=== PATIENT | male | born 1950 | race Caucasian/White ===

== ENCOUNTER → 2017-01-15 | Outpatient (CLI) | payer OTHER ==
[~2017-01-15] MED LIST: ACT15 PO; ALL300 PO; ASPCH81 PO; ATEN50TA8 PO; ERGO1CAP35 PO; GLC500 PO; HYD50 PO; LISI-725 PO; MCR5 PO; OMEG10007 PO; SIMV20TA2 PO; rapaflo PO
[2017-01-15 14:04] LABS: BLOOD UREA NITROGEN 13 mg/dl (7-18); BUN/CREATININE RATIO 15.8 (10-20); CREATININE 0.84 mg/dl (0.60-1.40)
== END | disposition home or self-care (01) ==
LOC: C.LABBC 09:40
PROVIDERS: ATTEND Urology
DX: R39.12 Poor urinary stream (principal)

== ENCOUNTER → 2017-04-19 | Outpatient (CLI) | payer OTHER, MEDICARE ==
[2017-04-19 17:16] LABS: BLOOD UREA NITROGEN 12 mg/dl (7-18); CREATININE 0.88 mg/dl (0.60-1.40)
== END | disposition home or self-care (01) ==
LOC: C.LABBC 12:21
PROVIDERS: ATTEND Urology
DX: E11.9 Type 2 diabetes mellitus without complications (principal); R97.20 Elevated prostate specific antigen [PSA]

== ENCOUNTER → 2017-05-02 | Outpatient (CLI) | payer OTHER, MEDICARE ==
[~2017-05-02] MED LIST changes: +GADAVIST IV PRN
--- NOTE | 2017-05-02 12:54 | DIAGNOSTIC IMAGING REPORT ---
PROSTATE MRI COMBO CLINICAL HISTORY: 67 years-old Male presenting with elevated PSA. PSA 5.26 ng/mL on 01/15/2017 and 0.916 on 04/19/2017. TECHNIQUE: Multisequence, multiplanar MR imaging of the prostate was performed before and after the administration of intravenous contrast. Additional postprocessing was performed on a separate [employer] workstation by the radiologist for 3-D volumetric segmentation of the prostate and contouring of region(s) of interest (SUSAN) for targeting. IV contrast: 12 mL of Gadavist. Notably, the first attempt at intravenous contrast injection resulted in extravasation in the right antecubital fossa. Successful subsequent injection in the left upper extremity. COMPARISON: CT from 01/15/2017 performed at an outside hospital. FINDINGS: Image quality is degraded by patient body habitus. Prostate: The prostate measures 4.9 x 3.9 x 5.1 cm (GrabhouseD prostate boundary segmentation volume 43 mL). Moderate changes of benign prostatic hyperplasia. Precontrast T1 weighted imaging demonstrates no evidence of intrinsic T1 hyperintensity to suggest hemorrhage. Symmetric T2 hypointensity at the paramedian prostate base in the peripheral zone characteristic of stroma related to the insertion of the ejaculatory ducts. No suspicious lesion is apparent in the transition or peripheral zones. Seminal vesicles normal. Bladder: Bladder wall thickening likely indicating chronic outlet obstruction. Bowel: Visualized portion of the rectum normal. Peritoneum: No free fluid in the pelvis. Lymph nodes: No lymphadenopathy in the visualized portion of the pelvis. Vasculature: Iliac vessels patent. Abdominal wall: Normal. Osseous structures: Normal bone marrow signal intensity. IMPRESSION: 1. No suspicious lesion is apparent in the transition or peripheral zones. 2. Benign prostatic hyperplasia. Electronically signed by: Chris Hamilton M.D. 05/02/2017 12:53 PM Dictated Date/Time: 05/02/2017 12:45 PM
== END | disposition home or self-care (01) ==
LOC: C.MRIBC 09:13
PROVIDERS: ATTEND Urology
DX: R97.20 Elevated prostate specific antigen [PSA] (principal); N40.0 Benign prostatic hyperplasia without lower urinary tract symptoms

== ENCOUNTER 2024-07-20 18:23 | Inpatient (IN) ==
[2024-07-20 19:28] LABS: Basophils # (auto) 0.06 K/uL (0.00-0.20); Basophils % (auto) 0.6 %; Eosinophils # (auto) 0.03 K/uL (0.00-0.50); Eosinophils % (auto) 0.3 %; Hemoglobin 15.5 g/dl (14.0-18.0); Immature Granulocytes # (auto) 0.04 K/uL (0.01-0.20); Immature Granulocytes % (auto) 0.4 %; Lymphocytes # (auto) 0.85 K/uL (1.20-3.40); Mean Corpuscular Hemoglobin 29.5 pg (25.0-34.0); Mean Corpuscular Volume 89.4 fL (80.0-100.0); Mean Platelet Volume 10.9 fL (9.4-12.4); Monocytes # (auto) 1.11 K/uL (0.11-0.59); Monocytes % (auto) 11.8 %; Neutrophils # (auto) 7.34 K/uL (1.40-6.50); Neutrophils % (auto) 77.9 %; Platelet Count 219 K/uL (130-400); RDW Coefficient of Variation 13.5 % (11.5-14.5); RDW Standard Deviation 44.1 fL (36.4-46.3); Red Blood Count 5.26 M/uL (4.70-6.10); White Blood Count 9.43 K/ul (4.8-10.8)
[2024-07-20] MEDS: ALBUT/IPRATROP 3MG/0.5MG NEB 3 ML VIAL NEB STA (19:34)
[2024-07-20 19:45] LABS: BUN Creatinine Ratio 18.2 (10-20); Bilirubin,Total 0.6 mg/dl (0.2-1.0); Calcium 9.4 mg/dl (8.6-10.3); Creatinine Clr Calc Pharmacy 92.6 ml/min; Globulin 3.9 gm/dl (2.5-4.0); Potassium 4.4 mmol/L (3.5-5.1); Total Protein 7.9 gm/dl (6.0-8.3)
[2024-07-20 19:51] LABS: Troponin I High Sensitivity 43.8 pg/ml (0-20)
[2024-07-20 19:52] LABS: HCO3 VBG 30 mmol/L; Oxygen Saturation VBG 70.4 %; PCO2 VBG 48 mmHg (38-50); PO2 VBG 42 mmHg
[2024-07-20 20:07] LABS: Partial Thromboplastin Ratio 1.1; Partial Thromboplastin Time 29 Seconds (21-31)
[2024-07-20 20:15] LABS: Adenovirus PCR Not Detected (NotDetected); Bordetella parapertussis PCR Not Detected (NotDetected); Bordetella pertussis PCR Not Detected (NotDetected); Chlamydia pneumoniae PCR Not Detected (NotDetected); Coronavirus 229E PCR Not Detected (NotDetected); Coronavirus CoV-2 (COVID19)PCR DETECTED (NotDetected); Coronavirus HKU1 PCR Not Detected (NotDetected); Coronavirus NL63 PCR Not Detected (NotDetected); Coronavirus OC43PCR Not Detected (NotDetected); Human Metapneumovirus PCR Not Detected (NotDetected); Influenza A PCR Not Detected (NotDetected); Influenza B PCR Not Detected (NotDetected); Mycoplasma pneumoniae PCR Not Detected (NotDetected); Parainfluenza Virus 1 PCR Not Detected (NotDetected); Parainfluenza Virus 2 PCR Not Detected (NotDetected); Parainfluenza Virus 3 PCR Not Detected (NotDetected); Parainfluenza Virus 4 PCR Not Detected (NotDetected); Respiratory Syncytial VirusPCR Not Detected (NotDetected); Rhinovirus/Enterovirus PCR Not Detected (NotDetected)
[2024-07-20] MEDS: FUROSEMIDE 40 MG/4 ML VIAL IV ONE (21:02)
[2024-07-20] MEDS: dexAMETHasone**PF** 10 MG/ML VIAL IV ONE (21:03)
--- NOTE | 2024-07-20 21:06 | XRay Report ---
EXAM: XR chest 1V not portable CLINICAL HISTORY: Chest pain, nonspecific TECHNIQUE: An X-ray image of the chest is obtained in AP projection. COMPARISON: No prior studies are available for comparison. FINDINGS: Pulmonary Parenchyma: Prominent bilateral bronchovascular lung markings. Haziness in the left lower zone and costophrenic angle. No evidence of consolidation, collapse, or focal opacities. No pulmonary nodules are identified. Heart and Mediastinum: Heart size appears enlarged. No mediastinal widening or masses. No hilar or mediastinal lymphadenopathy. Bony Thorax: Bony thorax appears intact without fractures or deformities. Soft Tissues: Soft tissues overlying the chest wall are unremarkable. IMPRESSION: 1. Cardiomegaly with prominent bronchovascular lung markings; likely vascular congestion. 2. Haziness in the left lower zone and costophrenic angle is likely due to enlarged cardiac shadow versus atelectatic changes/minimal pleural effusion. 3. Clinical correlation is suggested. Electronically signed by Andres Kang 07-20-2024 9:06 PM
[2024-07-20 21:35] LABS: Magnesium 1.4 mg/dl (1.7-2.4)
[2024-07-20 21:51] LABS: Thyroid Stimulating Hormone 0.982 uIu/ml (0.300-4.500)
[2024-07-20] MEDS ORDERED: oxyCODONE HCL IR 5 MG TAB (IMMEDIATE RELEASE) PO PRN (22:01)
[2024-07-20] MEDS ORDERED: ACETAMINOPHEN 325 MG TAB PO PRN ×2 (22:01→23:25)
[2024-07-20] MEDS ORDERED: PROMETHAZINE 6.25 MG/50.25 ML BAG IV PRN (22:01)
[2024-07-20] MEDS ORDERED: CARBOHYDRATES FOR HYPOGLYCEMIA PO PRN ×2 (22:15→23:25)
[2024-07-20] MEDS ORDERED: GLUCAGON FOR INJ 1 MG VIAL SQ PRN ×2 (22:15→23:25)
[2024-07-20] MEDS ORDERED: GLUCOSE 10 TAB/TUBE PO PRN ×2 (22:15→23:25)
[2024-07-20] MEDS ORDERED: DEXTROSE 50% 50 ML SYRINGE IV PRN ×2 (22:15→23:25)
[2024-07-20] MEDS ORDERED: GLUCOSE 40% GEL 15 GM TUBE PO PRN ×2 (22:15→23:25)
--- NOTE | 2024-07-20 22:18 | Emergency Department Note ---
History of Present Illness General Chief Complaint: Respiratory Problems Stated Complaint: REF BY [facility]-COUGH, FEVER, SHORTNESS OF BREATH Time Seen by Provider: 07/20/24 19:24 History of Present Illness Provider Complaint: shortness of breath and cough Onset (ago): day(s) (3) Consistency/Duration: + progressively worsening Relieved By: + nothing Exacerbated By: + coughing Context: + other (Exposure to someone who recently went to the [facility]); no recent illness or no recent travel Associated symptoms: + fever and + chest congestion; no chest pain, no orthopnea, no palpitations or no hemoptysis Home Medications Medication Instructions Recorded Confirmed Type allopurinol 300 mg tablet 300 mg PO QAM 08/12/23 09/04/23 History aspirin 81 mg tablet,delayed 81 mg PO DAILY 08/12/23 09/04/23 History release atenolol 50 mg tablet 50 mg PO QAM 08/12/23 09/04/23 History cholecalciferol (vitamin D3) 50 50 mcg PO DAILY 08/12/23 09/04/23 History mcg (2,000 unit) tablet (Vitamin D3) finasteride 5 mg tablet 5 mg PO 08/12/23 09/04/23 History garlic 1,000 mg capsule 1,000 mg PO DAILY 08/12/23 09/04/23 History glipizide 5 mg tablet 5 mg PO BID 08/12/23 09/04/23 History hydrochlorothiazide 50 mg tablet 50 mg PO QAM 08/12/23 09/04/23 History lisinopril 40 mg tablet 40 mg PO [facility] 08/12/23 09/04/23 History metformin 1,000 mg tablet 1,000 mg PO BID 08/12/23 09/04/23 History multivitamin 1 tab PO [facility] 08/12/23 09/04/23 History omega 0-[id number]-[id number]-fish oil 1,000 mg 1 cap PO BID 08/12/23 09/04/23 History (120 mg-180 mg) capsule (Fish Oil) pioglitazone 30 mg tablet 30 mg PO M 08/12/23 09/04/23 History simvastatin 40 mg tablet 40 mg PO PM 08/12/23 09/04/23 History tamsulosin 0.4 mg capsule 0.4 mg PO 08/12/23 09/04/23 History Allergies Allergy/AdvReac Type Severity Reaction Status Date / Time phenylbutazone Allergy Intermediate Fever Verified 07/20/24 22:17 amlodipine Allergy Mild Gastrointestinal Verified 09/04/23 08:00 Upset Past Med/Surg History Problem List (Updated 07/20/24 @ 22:18 by See Wyman MD) COVID-19 (Acute) Fluid overload (Acute) Hypoxia (Acute) 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) Medical History Arthritis BPH (benign prostatic hyperplasia) Gallstones present, no issues Diabetes mellitus, type 2 Hypertension Hyperlipidemia Sleep apnea cpap Surgical History History of right cataract extraction History of colonoscopy History of tooth extraction Hx of knee surgery in 60's can't recall which knee cap repaired History of lithotripsy Family History Grandfather (Paternal) Colon cancer Sister Diabetes Brother Diabetes Social History Smoking Status: Former smoker Second Hand Exposure: No; Do You Dip or Chew Tobacco: No; Hx Alcohol Use: No Hx Substance Use: No Preferred Language: Portuguese Communication Ability: Effective Senior Clinical Research Associate Required: No Beliefs That Will Affect Care: None Current Living Situation: Spouse Feels Safe at Home: Yes Assistive Devices: CPAP and Glasses Physical Exam 2 Vital Signs: Vital Signs - 24 hr 07/20/24 18:28 07/20/24 19:17 07/20/24 19:20 Temperature 37.1 C Temperature Source Oral Pulse Rate 84 Respiratory Rate 14 Blood Pressure 189/95 H 190/98 H Blood Pressure Nithya n 126 149 Pulse Oximetry 92 88 L Oxygen Delivery Me thod Room Air Nasal Cannula Oxygen Flow Rate 0 Sepsis New/Unexpla ined Change in Men brandon Status No Sepsis Action Take n by Nursing No Action Required Oxygen Flow Rate - Titration 2 Pulse Oximetry Pos t Tiitration 90 07/20/24 19:27 07/20/24 19:30 07/20/24 19:41 Temperature Temperature Source Pulse Rate 73 75 Respiratory Rate 16 Blood Pressure 184/89 H Blood Pressure Nithya n 121 Pulse Oximetry 96 Oxygen Delivery Me thod Nasal Cannula Oxygen Flow Rate 2 Sepsis New/Unexpla ined Change in Men brandon Status Sepsis Action Take n by Nursing Oxygen Flow Rate - Titration Pulse Oximetry Pos t Tiitration 07/20/24 19:57 07/20/24 20:00 07/20/24 20:00 Temperature Temperature Source Pulse Rate 79 79 Respiratory Rate 23 Blood Pressure 173/98 H Blood Pressure Nithya n 111 Pulse Oximetry 95 96 Oxygen Delivery Me thod Nasal Cannula Nasal Cannula Oxygen Flow Rate 2 2 Sepsis New/Unexpla ined Change in Men brandon Status Sepsis Action Take n by Nursing Oxygen Flow Rate - Titration Pulse Oximetry Pos t Tiitration 07/20/24 20:00 07/20/24 20:18 07/20/24 20:30 Temperature Temperature Source Pulse Rate 77 Respiratory Rate 22 Blood Pressure 173/98 H 173/87 H Blood Pressure Nithya n 111 134 Pulse Oximetry 96 Oxygen Delivery Me thod Nasal Cannula Oxygen Flow Rate 2 Sepsis New/Unexpla ined Change in Men brandon Status Sepsis Action Take n by Nursing Oxygen Flow Rate - Titration Pulse Oximetry Pos t Tiitration 07/20/24 20:33 07/20/24 20:51 07/20/24 21:12 Temperature Temperature Source Pulse Rate 79 78 80 Respiratory Rate 24 18 17 Blood Pressure Blood Pressure Nithya n Pulse Oximetry 96 94 94 Oxygen Delivery Me thod Nasal Cannula Nasal Cannula Nasal Cannula Oxygen Flow Rate 2 2 2 Sepsis New/Unexpla ined Change in Men brandon Status Sepsis Action Take n by Nursing Oxygen Flow Rate - Titration Pulse Oximetry Pos t Tiitration Physical Exam: Physical Exam GENERAL: oriented to person, place, and time. appears well-developed and well- nourished. HENT: Exam performed. - Head: Normocephalic and atraumatic. EYES: Conjunctivae and EOM are normal. Right eye exhibits no discharge. Left eye exhibits no discharge. No scleral icterus. NECK: Normal range of motion. Neck supple. No JVD present. CV: Normal rate, regular rhythm, normal heart sounds and intact distal pulses. There is no peripheral edema. Palpable radial pulses bue. PULM/CHEST: Inspiratory rales at the bases. ABD: The abdomen is soft. There is no tenderness. NEURO: Motor and sensation grossly intact. SKIN: Skin is warm and dry. He is not diaphoretic. PSYCH: normal mood and affect. Behavior is normal. Judgment and thought content normal. Course Course 1923: The patient was evaluated in room B12. A complete history and physical exam was performed Cardiac monitoring: An order was placed for continuous cardiac monitoring. The monitor shows a rate of 80 with sinus rhythm interpreted by me Patient was found to be hypoxic on room air. Supplemental oxygen was applied which improved the patient's oxygen saturation. 2039: Vital signs stable on supplemental oxygen via nasal cannula. Chest x-ray shows cardiomegaly with cephalization. Labs show an elevated proBNP and troponin. Patient is COVID-positive. Patient be treated with Lasix 40 mg IV push as well as Decadron 6 mg IV push. Patient will be admitted to the [facility] team. Administered Medications Discontinued Medications Albuterol (Albut/Ipratrop 3mg/0.5mg Neb 3 Ml Vial) 3 ml NEB NOW STA; Protocol Stop: 07/20/24 19:30 Last Admin: 07/20/24 19:34 Dose: 3 ml Documented By: [facility] Dexamethasone Sodium Phosphate (DexamethasonePf 10 Mg/Ml Vial) 6 mg IV NOW ONE Stop: 07/20/24 20:39 Last Admin: 07/20/24 21:03 Dose: 6 mg Documented By: [facility] Furosemide (Furosemide 40 Mg/4 Ml Vial) 40 mg IV ONE ONE Stop: 07/20/24 20:39 Last Admin: 07/20/24 21:02 Dose: 40 mg Documented By: [facility] Medical Decision Making Laboratory Data Attestation: I reviewed the patient's lab results. 07/20/24 19:10 07/20/24 19:10 Lab Results 07/20/24 07/20/24 07/20/24 Range/Units 19:10 19:40 21:00 WBC 9.43 (4.8-10.8) K/ul RBC 5.26 (4.70-6.10) M/uL Hgb 15.5 (14.0-18.0) g/dl Hct 47.0 (42.0-52.0) % MCV 89.4 (80.0-100.0) fL MCH 29.5 (25.0-34.0) pg MCHC 33.0 (32.0-36.0) g/dL RDW Std Deviation 44.1 (36.4-46.3) fL RDW Coeff of Alexandr 13.5 (11.5-14.5) % Plt Count 219 (130-400) K/uL MPV 10.9 (9.4-12.4) fL Immature Gran % (Auto) 0.4 % Neut % (Auto) 77.9 % Lymph % (Auto) 9.0 % [place] % (Auto) 11.8 % Eos % (Auto) 0.3 % Baso % (Auto) 0.6 % Neut # (Auto) 7.34 H (1.40-6.50) K/uL Lymph # (Auto) 0.85 L (1.20-3.40) K/uL [place] # (Auto) 1.11 H (0.11-0.59) K/uL Eos # (Auto) 0.03 (0.00-0.50) K/uL Baso # (Auto) 0.06 (0.00-0.20) K/uL Immature Gran # (Auto) 0.04 (0.01-0.20) K/uL PT 11.0 (9.0-12.0) Seconds INR 1.0 (0.9-1.1) APTT 29 (21-31) Seconds PTT Ratio 1.1 VBG pH 7.40 (7.36-7.41) VBG pCO2 48 (38-50) mmHg VBG pO2 42 mmHg VBG HCO3 30 mmol/L VBG O2 Saturation 70.4 % VBG Base Excess 4.0 mEq/L Sodium 139 (136-145) mmol/L Potassium 4.4 (3.5-5.1) mmol/L Chloride 100 (98-107) mmol/L Carbon Dioxide 29 (21-32) mmol/L Anion Gap 10 (3-11) BUN 16 (6-23) mg/dl Creatinine 0.88 (0.6-1.4) mg/dl Est Cr Clr Drug Dosing 92.6 ml/min eGFR 89.12 BUN/Creatinine Ratio 18.2 (10-20) Glucose 157 H (70-99(Fasting)) mg/dl Calcium 9.4 (8.6-10.3) mg/dl Magnesium 1.4 L (1.7-2.4) mg/dl Total Bilirubin 0.6 (0.2-1.0) mg/dl AST 28 (13-39) U/L ALT 17 (7-52) U/L Alkaline Phosphatase 54 (34-104) U/L Troponin I High Sens 43.8 H 43.3 H (0-20) pg/ml B-Natriuretic Peptide 389 H (0-100) pg/ml Total Protein 7.9 (6.0-8.3) gm/dl Albumin 4.0 (3.4-5.0) gm/dl Globulin 3.9 (2.5-4.0) gm/dl Albumin/Globulin Ratio 1.0 (0.9-2) TSH 0.982 (0.300-4.500) uIu/ml Adenovirus (PCR) Not Detected (NotDetected) B. pertussis DNA (PCR) Not Detected (NotDetected) B.parapertussis DNA PCR Not Detected (NotDetected) C. pneumoniae DNA (PCR) Not Detected (NotDetected) Coronavirus OC43 (PCR) Not Detected (NotDetected) Coronavirus HKU1 (PCR) Not Detected (NotDetected) Coronavirus 229E (PCR) Not Detected (NotDetected) SARS-CoV-2 (PCR) DETECTED A (NotDetected) Coronavirus NL63 (PCR) Not Detected (NotDetected) Human Metapneumovir PCR Not Detected (NotDetected) Influenza Type A (PCR) Not Detected (NotDetected) Influenza Type B (PCR) Not Detected (NotDetected) M. pneumoniae (PCR) Not Detected (NotDetected) Parainfluenza 1 (PCR) Not Detected (NotDetected) Parainfluenza 2 (PCR) Not Detected (NotDetected) Parainfluenza 3 (PCR) Not Detected (NotDetected) Parainfluenza 4 (PCR) Not Detected (NotDetected) RSV (PCR) Not Detected (NotDetected) Entero/Rhino (PCR) Not Detected (NotDetected) Imaging Data Attestation: I personally reviewed and interpreted this imaging study as follows: My Impression: Chest x-ray: Cardiomegaly with cephalization Radiologist's Impression: Chest X-Ray 07/20/24 19:00 EXAM: XR chest 1V not portable CLINICAL HISTORY: Chest pain, nonspecific TECHNIQUE: An X-ray image of the chest is obtained in AP projection. COMPARISON: No prior studies are available for comparison. FINDINGS: Pulmonary Parenchyma: Prominent bilateral bronchovascular lung markings. Haziness in the left lower zone and costophrenic angle. No evidence of consolidation, collapse, or focal opacities. No pulmonary nodules are identified. Heart and Mediastinum: Heart size appears enlarged. No mediastinal widening or masses. No hilar or mediastinal lymphadenopathy. Bony Thorax: Bony thorax appears intact without fractures or deformities. Soft Tissues: Soft tissues overlying the chest wall are unremarkable. IMPRESSION: 1. Cardiomegaly with prominent bronchovascular lung markings; likely vascular congestion. 2. Haziness in the left lower zone and costophrenic angle is likely due to enlarged cardiac shadow versus atelectatic changes/minimal pleural effusion. 3. Clinical correlation is suggested. Electronically signed by Andres Kang 07-20-2024 9:06 PM ECG Data Attestation: I personally reviewed and interpreted this ECG as follows: Interpretation: Sinus rhythm with rate of 78. [place] QRS and QTc intervals are within normal limits. No ST elevation or ST depression MDM Narrative 1923: The patient was evaluated in room B12. A complete history and physical exam was performed Cardiac monitoring: An order was placed for continuous cardiac monitoring. The monitor shows a rate of 80 with sinus rhythm interpreted by me Patient was found to be hypoxic on room air. Supplemental oxygen was applied which improved the patient's oxygen saturation. 2039: Vital signs stable on supplemental oxygen via nasal cannula. Chest x-ray shows cardiomegaly with cephalization. Labs show an elevated proBNP and troponin. Patient is COVID-positive. Patient be treated with Lasix 40 mg IV push as well as Decadron 6 mg IV push. Patient will be admitted to the [facility] team. Impression & Plan Hypoxia, Fluid overload, COVID-19 Critical Care Time Critical Care Time: Yes Total Critical Care Time: 67 I have personally spent greater than 67 minutes of critical care time in the direct management of this patient. This includes bedside care, interpretation of diagnostic studies, and testing, discussion with consultants, patient, and family members, and other required patient management activities. This 67 minutes is in excess of all separately billable procedures. Discharge Plan Visit Data Chief Complaint: Respiratory Problems Stated Complaint: REF BY [facility]-COUGH, FEVER, SHORTNESS OF BREATH ED Provider: See Wyman Discharge Problem: Hypoxia, Fluid overload, COVID-19 Patient Disposition: Admitted As Inpatient Forms Stand Alone Forms: My [facility] Prescriptions Prescriptions: No Action hydrochlorothiazide 50 mg Tablet 50 mg PO QAM aspirin 81 mg Tablet,Delayed Release (Dr/Ec) 81 mg PO DAILY garlic 1,000 mg Capsule 1,000 mg PO DAILY tamsulosin 0.4 mg Capsule 0.4 mg PO HS metformin 1,000 mg Tablet 1,000 mg PO BID allopurinol 300 mg Tablet 300 mg PO QAM pioglitazone 30 mg Tablet 30 mg PO QAM lisinopril 40 mg Tablet 40 mg PO QAM atenolol 50 mg Tablet 50 mg PO QAM finasteride 5 mg Tablet 5 mg PO HS glipizide 5 mg Tablet 5 mg PO BID cholecalciferol (vitamin D3) [Vitamin D3] 50 mcg (2,000 unit) Tablet 50 mcg PO DAILY omega [id number]-hpn-[id number]-fish oil [Fish Oil] 1,000 mg (120 mg-180 mg) Capsule 1 cap PO BID simvastatin 40 mg Tablet 40 mg PO PM multivitamin Tablet 1 tab PO QAM Referrals Referrals: Guru Cox MD [Primary Care Provider] -
[2024-07-20] MEDS: METOPROLOL TARTRATE 1 MG/ML VIAL IV STA (22:30)
[2024-07-20] MEDS ORDERED: NITROGLYCERIN SL 0.4 MG/TAB TAB SL PRN (23:25)
[2024-07-20] MEDS: MAGNESIUM SULFATE / D5W 1 GM/100 ML BAG IV SCH (23:38)
[2024-07-20] MEDS: REMDESIVIR 200 MG in SODIUM CHLORIDE 0.9% 210 ML IV STA (23:38)
[2024-07-20] MEDS: DOXYCYCLINE HYCLATE 100 MG in DEXTROSE 5% MINI-B 100 ML IV STA (23:38)
[2024-07-21] MEDS: INSULIN ASPART PER UNIT CHARGE SC SCH (00:01)
[2024-07-21] MEDS: LANTUS PER UNIT CHARGE SQ SCH (00:01)
--- NOTE | 2024-07-21 02:42 | History & Physical Report ---
Date of Service July 20, 2024 late entry Patient seen and admitted 07/20/2024. Assessment & Plan (1) Acute hypoxemic respiratory failure: Plan: Acute hypoxemic respiratory failure Multifactorial COVID-19 pneumonia with superimposed bacterial infection Mild CHF hypertension and troponin, elevated secondary to illness hyperlipidemia, on statin Rx PVCs, patient recently started [facility] on Lopressor in place of home atenolol TALI on CPAP DM2 on oral medications, well-controlled as of recent hemoglobin A1c of 6.05 April 2024 morbid obesity Admit to PCU Supplemental O2 Decadron and remdesivir for severe COVID-19 pneumonia Doxycycline for superimposed bacterial infection Pulmonary consult if without improvement Strict I/Os, daily weights, CHF education Monitor clinical response to initial dose of IV Lasix TTE, Cardiology consult re: CHF Basal bolus insulin, ISS BG goal 1 10-1 40, carb count coverage DVT prophylaxis per Lovenox subcu Full code Patient requesting updates providers. Ms. Albertina Adhikari, contact number# [phone]. Text document was generated using [employer] voice recognition software. It may contain grammatical or spelling errors. Kindly contact undersigned for clarification of any documentation item in question. Admission and Anticipated Discharge Date Admission Date: July 20, 2024 History of Present Illness Chief Complaint: Shortness of breath Primary Care Provider: Guru Cox MD History obtained from patient, family, and records. Medical history significant for hypertension, hyperlipidemia, PVCs, TALI on CPAP, DM2 on oral medications, gout, urolithiasis, morbid obesity. Few days history of cough symptoms later productive of junky yellow sputum associated with generalized bodyaches and congestion and sore throat. Denies chest pain. Denies fluid retention. Sick contact over the weekend at the [email or web address]. Patient also saw [facility] 3 days ago for bradycardic episode in the setting of PVCs. Specialist recommended changing patient atenolol to metoprolol. Patient consulted local urgent care center and [facility] today. Noted to have O2 sats dropping below 90 with ambulation. Patient directed to ER for evaluation. O2 sats 80s upon arrival at the ER. Patient received Decadron, Lasix, and neb treatment at the ER. 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 Allergies Allergy/AdvReac Type Severity Reaction Status Date / Time phenylbutazone Allergy Intermediate Fever Verified 07/20/24 22:17 amlodipine AdvReac Mild Gastrointestinal Verified 07/20/24 22:18 Upset Home Medications Medication Instructions Recorded Confirmed Type allopurinol 300 mg tablet 300 mg PO QAM 08/12/23 07/20/24 History aspirin 81 mg tablet,delayed 81 mg PO DAILY 08/12/23 07/20/24 History release finasteride 5 mg tablet 5 mg PO HS 08/12/23 07/20/24 History glipizide 5 mg tablet 5 mg PO BID 08/12/23 07/20/24 History hydrochlorothiazide 50 mg tablet 50 mg PO QAM 08/12/23 07/20/24 History lisinopril 40 mg tablet 40 mg PO QAM 08/12/23 07/20/24 History metformin 1,000 mg tablet 1,000 mg PO [facility] 08/12/23 07/20/24 History omega 4-wna-trm-fish oil 1,000 mg 1 cap PO BID 08/12/23 07/20/24 History (120 mg-180 mg) capsule (Fish Oil) pioglitazone 30 mg tablet 30 mg PO QAM 08/12/23 07/20/24 History tamsulosin 0.4 mg capsule 0.8 mg PO QAM 08/12/23 07/20/24 History cholecalciferol (vitamin D3) 25 1,000 unit PO DAILY 07/20/24 07/20/24 History mcg (1,000 unit) capsule (Vitamin D3) metoprolol succinate 25 mg 25 mg PO DAILY 07/20/24 07/20/24 History tablet,extended release 24 hr simvastatin 20 mg tablet 20 mg PO HS 07/20/24 07/20/24 History Past Med/Surg History Problem List (Updated 07/21/24 @ 02:50 by Yon Fleming MD) Acute hypoxemic respiratory failure COVID-19 (Acute) Fluid overload (Acute) Hypoxia (Acute) 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) Medical History Arthritis BPH (benign prostatic hyperplasia) Gallstones present, no issues Diabetes mellitus, type 2 Hypertension Hyperlipidemia Sleep apnea cpap Surgical History History of right cataract extraction History of colonoscopy History of tooth extraction Hx of knee surgery in 60's can't recall which knee cap repaired History of lithotripsy Family History Grandfather (Paternal) Colon cancer Sister Diabetes Brother Diabetes Social History Smoking Status: Never smoker Second Hand Exposure: No; Do You Dip or Chew Tobacco: No; Hx Alcohol Use: No Hx Substance Use: No Preferred Language: Citizen Of [place] Communication Ability: Effective Control Supervisor Required: No Beliefs That Will Affect Care: None Current Living Situation: Spouse Current Living Situation Comment: Lives w/ at home Feels Safe at Home: Yes Safety Concerns: Feels Safe At This Time Assistive Devices: CPAP Review of Systems Review of Systems: As per HPI, all other systems reviewed and negative Physical Exam Physical Exam: GENERAL: Comfortable, obese, no respiratory distress SKIN: Normal color, warm HEENT: [place] palpebral conjunctivae, no ptosis, dry buccal mucosa, nasal cannula in place NECK : Supple, short neck, no tenderness CHEST : Decreased breath sounds,, no tenderness HEART : RRR, no obvious murmurs ABDOMEN: Some distention, nontender EXTREMITIES : No LE swelling/tenderness, palpable pulses, no other conspicuous deformities noted NEUROLOGIC : Coherent, no facial asymmetry, no other gross focality Results & Data Results & Data Vital Signs (Past 12 Hours) Vital Signs Temp Pulse Pulse Resp BP BP Pulse Ox 07/20/24 23:35 07/20/24 23:25 36.4 C L 73 18 151/91 H 96 07/20/24 23:25 07/20/24 22:40 70 19 157/74 H 95 07/20/24 22:30 72 163/78 H 07/20/24 22:22 72 22 163/78 H 92 07/20/24 21:12 80 17 94 07/20/24 20:51 78 18 94 07/20/24 20:33 79 24 96 07/20/24 20:30 173/87 H 07/20/24 20:18 77 22 96 07/20/24 20:00 173/98 H 07/20/24 20:00 79 96 07/20/24 20:00 173/98 H 07/20/24 19:57 79 23 95 07/20/24 19:41 184/89 H 07/20/24 19:30 75 16 96 07/20/24 19:27 73 07/20/24 19:20 88 L 07/20/24 19:17 190/98 H 07/20/24 18:28 37.1 C 84 14 189/95 H 92 Pulse Ox O2 Del Method O2 Del Method O2 Flow Rate O2 Flow Rate 07/20/24 23:35 Nasal Cannula 2 07/20/24 23:25 Nasal Cannula 2 07/20/24 23:25 96 Nasal Cannula 2 07/20/24 22:40 Nasal Cannula 2 07/20/24 22:30 07/20/24 22:22 Nasal Cannula 2 07/20/24 21:12 Nasal Cannula 2 07/20/24 20:51 Nasal Cannula 2 07/20/24 20:33 Nasal Cannula 2 07/20/24 20:30 07/20/24 20:18 Nasal Cannula 2 07/20/24 20:00 07/20/24 20:00 Nasal Cannula 2 07/20/24 20:00 07/20/24 19:57 Nasal Cannula 2 07/20/24 19:41 07/20/24 19:30 Nasal Cannula 2 07/20/24 19:27 07/20/24 19:20 Nasal Cannula 0 07/20/24 19:17 07/20/24 18:28 Room Air Laboratory Results Laboratory Results WBC 9.43 K/ul (4.8-10.8) 07/20/24 19:10 RBC 5.26 M/uL (4.70-6.10) 07/20/24 19:10 Hgb 15.5 g/dl (14.0-18.0) 07/20/24 19:10 Hct 47.0 % (42.0-52.0) 07/20/24 19:10 MCV 89.4 fL (80.0-100.0) 07/20/24 19:10 MCH 29.5 pg (25.0-34.0) 07/20/24 19:10 MCHC 33.0 g/dL (32.0-36.0) 07/20/24 19:10 RDW Std Deviation 44.1 fL (36.4-46.3) 07/20/24 19:10 RDW Coeff of Alexandr 13.5 % (11.5-14.5) 07/20/24 19:10 Plt Count 219 K/uL (130-400) 07/20/24 19:10 MPV 10.9 fL (9.4-12.4) 07/20/24 19:10 Immature Gran % (Auto) 0.4 % 07/20/24 19:10 Neut % (Auto) 77.9 % 07/20/24 19:10 Lymph % (Auto) 9.0 % 07/20/24 19:10 Haines % (Auto) 11.8 % 07/20/24 19:10 Eos % (Auto) 0.3 % 07/20/24 19:10 Baso % (Auto) 0.6 % 07/20/24 19:10 Neut # (Auto) 7.34 K/uL (1.40-6.50) H 07/20/24 19:10 Lymph # (Auto) 0.85 K/uL (1.20-3.40) L 07/20/24 19:10 Haines # (Auto) 1.11 K/uL (0.11-0.59) H 07/20/24 19:10 Eos # (Auto) 0.03 K/uL (0.00-0.50) 07/20/24 19:10 Baso # (Auto) 0.06 K/uL (0.00-0.20) 07/20/24 19:10 Immature Gran # (Auto) 0.04 K/uL (0.01-0.20) 07/20/24 19:10 PT 11.0 Seconds (9.0-12.0) 07/20/24 19:10 INR 1.0 (0.9-1.1) 07/20/24 19:10 APTT 29 Seconds (21-31) 07/20/24 19:10 PTT Ratio 1.1 07/20/24 19:10 VBG pH 7.40 (7.36-7.41) 07/20/24 19:40 VBG pCO2 48 mmHg (38-50) 07/20/24 19:40 VBG pO2 42 mmHg 07/20/24 19:40 VBG HCO3 30 mmol/L 07/20/24 19:40 VBG O2 Saturation 70.4 % 07/20/24 19:40 VBG Base Excess 4.0 mEq/L 07/20/24 19:40 Sodium 139 mmol/L (136-145) 07/20/24 19:10 Potassium 4.4 mmol/L (3.5-5.1) 07/20/24 19:10 Chloride 100 mmol/L (98-107) 07/20/24 19:10 Carbon Dioxide 29 mmol/L (21-32) 07/20/24 19:10 Anion Gap 10 (3-11) 07/20/24 19:10 BUN 16 mg/dl (6-23) 07/20/24 19:10 Creatinine 0.88 mg/dl (0.6-1.4) 07/20/24 19:10 Est Cr Clr Drug Dosing 92.6 ml/min 07/20/24 19:10 eGFR 89.12 07/20/24 19:10 BUN/Creatinine Ratio 18.2 (10-20) 07/20/24 19:10 Glucose 157 mg/dl (70-99(Fasting)) H 07/20/24 19:10 Calcium 9.4 mg/dl (8.6-10.3) 07/20/24 19:10 Magnesium 1.4 mg/dl (1.7-2.4) L 07/20/24 19:10 Total Bilirubin 0.6 mg/dl (0.2-1.0) 07/20/24 19:10 AST 28 U/L (13-39) 07/20/24 19:10 ALT 17 U/L (7-52) 07/20/24 19:10 Alkaline Phosphatase 54 U/L (34-104) 07/20/24 19:10 Troponin I High Sens 43.3 pg/ml (0-20) H 07/20/24 21:00 B-Natriuretic Peptide 389 pg/ml (0-100) H 07/20/24 19:40 Total Protein 7.9 gm/dl (6.0-8.3) 07/20/24 19:10 Albumin 4.0 gm/dl (3.4-5.0) 07/20/24 19:10 Globulin 3.9 gm/dl (2.5-4.0) 07/20/24 19:10 Albumin/Globulin Ratio 1.0 (0.9-2) 07/20/24 19:10 TSH 0.982 uIu/ml (0.300-4.500) 07/20/24 19:10 Adenovirus (PCR) Not Detected (NotDetected) 07/20/24 19:10 B. pertussis DNA (PCR) Not Detected (NotDetected) 07/20/24 19:10 B.parapertussis DNA PCR Not Detected (NotDetected) 07/20/24 19:10 C. pneumoniae DNA (PCR) Not Detected (NotDetected) 07/20/24 19:10 Coronavirus OC43 (PCR) Not Detected (NotDetected) 07/20/24 19:10 Coronavirus HKU1 (PCR) Not Detected (NotDetected) 07/20/24 19:10 Coronavirus 229E (PCR) Not Detected (NotDetected) 07/20/24 19:10 SARS-CoV-2 (PCR) DETECTED (NotDetected) A 07/20/24 19:10 Coronavirus NL63 (PCR) Not Detected (NotDetected) 07/20/24 19:10 Human Metapneumovir PCR Not Detected (NotDetected) 07/20/24 19:10 Influenza Type A (PCR) Not Detected (NotDetected) 07/20/24 19:10 Influenza Type B (PCR) Not Detected (NotDetected) 07/20/24 19:10 M. pneumoniae (PCR) Not Detected (NotDetected) 07/20/24 19:10 Parainfluenza 1 (PCR) Not Detected (NotDetected) 07/20/24 19:10 Parainfluenza 2 (PCR) Not Detected (NotDetected) 07/20/24 19:10 Parainfluenza 3 (PCR) Not Detected (NotDetected) 07/20/24 19:10 Parainfluenza 4 (PCR) Not Detected (NotDetected) 07/20/24 19:10 RSV (PCR) Not Detected (NotDetected) 07/20/24 19:10 Entero/Rhino (PCR) Not Detected (NotDetected) 07/20/24 19:10 Impressions Chest X-Ray 07/20/24 19:00 EXAM: XR chest 1V not portable CLINICAL HISTORY: Chest pain, nonspecific TECHNIQUE: An X-ray image of the chest is obtained in AP projection. COMPARISON: No prior studies are available for comparison. FINDINGS: Pulmonary Parenchyma: Prominent bilateral bronchovascular lung markings. Haziness in the left lower zone and costophrenic angle. No evidence of consolidation, collapse, or focal opacities. No pulmonary nodules are identified. Heart and Mediastinum: Heart size appears enlarged. No mediastinal widening or masses. No hilar or mediastinal lymphadenopathy. Bony Thorax: Bony thorax appears intact without fractures or deformities. Soft Tissues: Soft tissues overlying the chest wall are unremarkable. IMPRESSION: 1. Cardiomegaly with prominent bronchovascular lung markings; likely vascular congestion. 2. Haziness in the left lower zone and costophrenic angle is likely due to enlarged cardiac shadow versus atelectatic changes/minimal pleural effusion. 3. Clinical correlation is suggested. Electronically signed by Andres Kang 07-20-2024 9:06 PM Diagnostic Findings EKG as per my interpretation :Rate 80, NSR, LAD, LAFB, LVH, no ischemia Code Status & VTE Plan VTE Prophylaxis Plan VTE Prophylaxis will be ordered: Yes
[2024-07-21 06:29] LABS: Basophils # (auto) 0.01 K/uL (0.00-0.20); Basophils % (auto) 0.1 %; Hematocrit (blood only) 40.4 % (42.0-52.0); Hemoglobin 13.5 g/dl (14.0-18.0); Immature Granulocytes # (auto) 0.02 K/uL (0.01-0.20); Immature Granulocytes % (auto) 0.3 %; Lymphocytes # (auto) 0.79 K/uL (1.20-3.40); Lymphocytes % (auto) 11.4 %; Mean Corpuscular Hemoglobin 29.5 pg (25.0-34.0); Mean Corpuscular Hgb Conc 33.4 g/dL (32.0-36.0); Mean Corpuscular Volume 88.4 fL (80.0-100.0); Mean Platelet Volume 11.3 fL (9.4-12.4); Monocytes # (auto) 0.37 K/uL (0.11-0.59); Monocytes % (auto) 5.3 %; Neutrophils # (auto) 5.77 K/uL (1.40-6.50); Neutrophils % (auto) 82.9 %; Platelet Count 205 K/uL (130-400); RDW Coefficient of Variation 13.3 % (11.5-14.5); RDW Standard Deviation 43.3 fL (36.4-46.3); Red Blood Count 4.57 M/uL (4.70-6.10); White Blood Count 6.96 K/ul (4.8-10.8)
[2024-07-21 06:51] LABS: BUN Creatinine Ratio 21.3 (10-20); Calcium 8.7 mg/dl (8.6-10.3); Magnesium 2.2 mg/dl (1.7-2.4); Potassium 3.9 mmol/L (3.5-5.1)
--- OUTSIDE RECORDS SUMMARY | 2024-07-21 08:05 | External Medical Summary | Summary of Care ---
Author Name Unknown Organization [facility] Address [address] [facility] [place] [address] Phone [phone] Care Team Providers Care Icicle Machine Operator Name Role Phone Guru Cox MD Primary Care Provider [phone] Reason for Visit * Reason Onset Date Comments Health Maintenance 06/12/2024 Encounter Details Date Type Department Care Team (Late st Contact Info) Description 06/12/2024 Telephone [facility] [address] [place] [address] Guru Cox MD [address] [facility] [place] [id number] Health Maintenance Allergies Active Allergy Reactions Criticality Noted Date Comments Amlodipine Abdominal pain Medium 03/07/2020 Other Allergy (See Comments) Fever 012 dutaxolidin documented as of this encounter (statuses as of 06/12/2024) Medications FISH OIL CONCENTRATE 1000 MG PO CAPS 1 tab twice daily 60 11 05/25/19 06 Active ASPIRIN EC 81 MG PO TBECIndications:DM type 2, not at goal (HCC) Take one pill daily 100 Tab 3 11/30/19 10 Active VITAMIN D 1000 UNIT PO CAPSIndications:Vi tamin D deficiency 1 capsule daily 30 Cap 11 05/29/19 12 Active Glucose Blood (ONETOUCH TEST) STRPIndications:DM type 2, goal A1c below 7 Testing blood sugars twice daily Dx. E11.9 100 Strip 1 05/02/19 16 Active Additional Information Patient not taking.Reported on 04/20/2024 Lancets Thin MISCIndications:DM type 2, goal A1c below 7 Testing sugars twice daily Dx: E11.9 100 Box Dosing Unit 1 05/02/19 16 Active Additional Information Patient not taking.Reported on 04/20/2024 Tamsulosin HCl 0.4 MG Oral Capsule (Flomax)Indication s:Obstructive uropathy Take 1 Capsule by mouth in the morning. 90 Capsule 07/19/19 24 Active Simvastatin 20 MG Oral Tablet (Zocor)Indications :Hyperlipidemia, unspecified hyperlipidemia type Take 1 Tablet by mouth at bedtime. 90 Tablet 07/19/19 24 Active metFORMIN HCl 1000 MG Oral Tablet (Glucophage)Indica tions:Type 2 diabetes mellitus with hemoglobin A1c goal of less than 8.0% (HCC) Take 1 Tablet by mouth in the morning and 1 Tablet before bedtime. 180 Tablet 07/19/19 24 Active Allopurinol 300 MG Oral Tablet (Zyloprim)Indicati ons:Gouty arthropathy Take 1 Tablet by mouth in the morning. 90 Tablet 07/19/19 24 Active Atenolol 50 MG Oral Tablet (Tenormin)Indicati ons:Essential hypertension with goal blood pressure less than 140/90 Take 1 Tablet by mouth in the morning. 90 Tablet 07/19/19 24 Active Finasteride 5 MG Oral Tablet (Proscar)Indicatio ns:Obstructive uropathy Take 1 Tablet by mouth in the morning. 90 Tablet 07/19/19 24 Active hydroCHLOROthiazid e 50 MG Oral Tablet (Hydrodiuril)Indic ations:Essential hypertension with goal blood pressure less than 140/90 Take 1 Tablet by mouth in the morning. 90 Tablet 07/19/19 24 Active Lisinopril 40 MG Oral Tablet Take 1 Tablet by mouth in the morning. 90 Tablet 07/19/19 24 Active Pioglitazone HCl 30 MG Oral Tablet (Actos)Indications :Type 2 diabetes mellitus with hemoglobin A1c goal of less than 8.0% (HCC) Take 1 Tablet by mouth in the morning. 90 Tablet 07/19/19 24 Active glipiZIDE 5 MG Oral Tablet (Glucotrol)Indicat ions:Type 2 diabetes mellitus with hemoglobin A1c goal of less than 8.0% ([facility]) TAKE 1 TABLET TWICE A DAY 30 MINUTES BEFORE MORNING AND EVENING MEALS 180 Tablet 3 07/19/19 24 Active documented as of this encounter (statuses as of 06/12/2024) Active Problems Problem Noted Date Diagnosed Date Gouty arthropathy 04/20/2024 Morbid obesity with body mass index of 40.0-44.9 in adult 02/23/2019 History of kidney stones 09/03/2017 Body mass index (BMI) of 40.0 to 44.9 in adult 1 Overview: Per Obesity protocol #1 Hyperlipidemia 03/07/2016 HTN, goal below 140/90 06/28/2014 Type 2 diabetes mellitus wit h hemoglobin A1c goal of less than 8.0% 06/08/2013 Overview (08/25/2015): ICD-10 update of inactive term Obstructive uropathy 02/18/2012 Vitamin D deficiency 05/07/2011 Gout 05/07/2002 Severe obstructive sleep apnea 05/07/2002 Overview (07/21/2013): 06/2013 -- auto CPAP 8 cwp 06/2013 -- auto CPAP 7 cwp 04/30/13 Split PSG -- AHI 44.9, titrated to 6, nocturnal hypoxemia persisted. [facility] documented as of this encounter (statuses as of 06/12/2024) Resolved Problems Problem Noted Date Diagnosed Date Resolved Date Ankle weakness 08/30/2015 09/03/2017 HTN, goal below 140/80 12/17/201106/28 Overview: Per HTN Protocol #27. Elevated prostate specific antigen (PSA) 05/07/2011 04/12/2021 Severe obesity with body mas s index (BMI) of 35.0 to 39.9 with serious comorbidity 07/25/2009 Overview (02/12/2018): Per Obesity Taxonomy ICD-10 update of inactive diagnosis HTN, GOAL BELOW 130/80 05/25/200912/19 Overview (05/25/2009): Per HTN Taxonomy. Benign neoplasm of colon 11/07/200712/2016 Overview (11/18/2007): hyperplastic polyp--repeat 10 years DM type 2, not at goal 10/04/200708/29 ADVANCE DIRECTIVE INFORMATION 11/24/2004 03/02/2024 Overview (11/24/2004): No, Advance Directive brochure given to patient. Varicose vein of leg 05/07/2002 017 HTN, goal below 140/90 05/25 Overview (05/25/2009): Per HTN Taxonomy. Calculus of kidney 8 Overview (06/03/1998): L sided renal lithiasis - stable Type 2 diabetes mellitus wit h hemoglobin A1c goal of less than 7.0% 06/08/2013 Overview (08/23/2015): ICD-10 update of inactive term INFORMATION 03/07/2017 Overview (06/03/1998): sleepm apnea OBESITY, UNSPECIFIED 010 Overview (07/25/2009): Per Obesity Taxonomy documented as of this encounter (statuses as of 06/12/2024) Immunizations Name Administration Dates Next Due Diptheria/Tetanus (Adult) 11/28/2007 TDAP (age 10 and older)(Boostrix) 08/22/2018 documented as of this encounter Social History Tobacco Use Types Packs/Day Years Used Date Smoking Tobacco: Never Smokeless Tobacco: Former Comments:Quit chewing tobacc o 17 years ago, sporadic Alcohol Use Standard Drinks/Week Comments No 0 (1 standard drink = 0.6 oz pur e alcohol) PHQ-2 Answer Date Recorded PHQ Adult Total Score 0 01/10/2024 Hunger Vital Sign Answer Date Recorded Within the past 12 months, y ou worried that your food would run out before you got the money to buy more. Never true 01/08/20 24 Within the past 12 months, t he food you bought just didn't last and you didn't have money to get more. Never true 01/08/2024 Childcare Answer Date Recorded Do you feel overwhelmed with taking care of a child, family member or friend? No 01/08/2024 Does your family need help f inding childcare? (Household - for ages 0-17 years) Not on file 01/08/2024 Clothing Answer Date Recorded Have you been unable to get clothing when it was really needed? No 01/08/2024 Is your family able to get c lothes or diapers when needed? (Household - for ages 0-17 years) Not on file 01/08/2024 Personal Safety Answer Date Recorded Do you feel unsafe or have concerns for your saf ety? No 01/08/2024 Do you have concerns for you r family's safety? (Household - for ages 0-17 years) Not on file 01/08/2024 Utilities Answer Date Recorded Do you have trouble paying y our heating, water, or electric bill? No 01/08/2024 Is your family able to pay t he heat, water, or electric bill? (Household - for ages 0-17 years) Not on file 01/08/2024 Does your family have access to good internet? (Household - for ages 0-17 years) Not on file 01/08/2024 Employment Status Answer Date Recorded Are you unemployed or without regular income? No 01/08/2024 Does the household have a re gular source of income? (Household - for ages 0-17 years) Not on file 01/08/2024 Social Connections Answer Date Recorded How often do you feel lonely or isolated from th ose around you? Rarely 01/08/2024 Financial Resource Strain Answer Date R ecorded Do you have any trouble payi ng for your medications, or do you think you might in the future? No 01/08/2024 Does your family have troubl e paying for medicine? (Household - for ages 0-17 years) Not on file 01/08/2024 Transportation Needs Answer Date Record ed Do you have trouble getting a ride to medical visits or work? (Adult - for ages 18 years and over) Not on file 01/08/2024 Does your family have a hard time getting a ride to doctors visits? (Household - for ages 0-17 years) Not on file 01/08/2024 Has lack of transportation k ept you from medical appointments, meetings, work, or from getting things needed for daily living? Check all that apply. No 01/08/2024 Do you (or your family) have trouble finding or paying for a ride (transportation)? (Household - for ages 0-17 years) Not on file 01/08/2024 Housing Stability Answer Date Recorded Do you currently live in a s helter or have no steady place to sleep at night? No 01/08/2024 Do you think you are at risk of becoming homeless? (Adult - for ages 18 years and over) Not on file 01/08/2024 Does your family worry about paying for your home or becoming homeless? (Household - for ages 0-17 years) Not on file 0 01/08/2024 Are you homeless or worried that you might be in the future? No 01/08/2024 Are you (or your family) leida eless or worried that you might be in the future? (Household - for ages 0-17 years) Not on file Food Insecurity Answer Date Recorded Do you need food for this week? No 01/08/2024 Are you able to get enough f ood for your family? (Household - for ages 0-17 years) Not on file 01/08/2024 Does your family need food t his week? (Household - for ages 0-17 years) Not on file 01/08/2024 Do you always have enough fo od for your family? (Household - for ages 0-17 years) Not on file 01/08/2024 Food Insecurity Answer Date Recorded Within the past 12 months, y ou worried that your food would run out before you got the money to buy more. Never true 01/08/20 24 Within the past 12 months, t he food you bought just didn't last and you didn't have money to get more. Never true 01/08/2024 Do you need food for this week? 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 Not on file Not on file Not on file Not on file Not on file Not on file documented as of this encounter Miscellaneous Notes * Telephone Encounter - Josefina Garcia LPN - 06/12/2024 12:06 PM EST Care Gaps Comprehensive Care Outreach Last Office/Telemedicine Visit: 04/20/2024 (in office), Visit date not found (telemedicine) Next Office Visit: 10/19/2024 Hemoglobin AIC Results: Lab Results Component Value Date/Time HEMOGLOBIN A1C 6.4 (H) 04/16/1996 12:15 PM HEMOGLOBIN A1C - [facility] 6.8 (H) 04/08/2024 11:49 AM HEMOGLOBIN A1C - [facility] 6.9 (H) 07/11/2023 09:58 AM HEMOGLOBIN A1C - [facility] 7.2 (H) 11/16/2022 11:14 AM HEMOGLOBIN A1C - [facility] 7.4 (H) 03/07/2020 11:01 AM HEMOGLOBIN A1C - [facility] 7.3 (H) 02/23/2019 11:04 AM HEMOGLOBIN A1C - [facility] 7.5 (H) 08/22/2018 10:48 AM BP Readings from Last 1 Encounters: 04/20/24 152/72 Reviewed Health Maintenance below: Health Maintenance Topic Date Due Adult Wellness Visit Never done Influenza Vaccine (FLU shot) (1) Never done Albumin/Creatinine Ratio 07/10/2024 Zoster Vaccines (1 of 2) 01/09/2025 (Originally 02/14/1998) Pneumococcal Vaccine: 50+ Years (1 of 2 - PCV) 01/09/2025 (Originally 02/14/1969) DXA Scan 04/20/2025 (Originally 1950) GFR 07/10/2024 B-12 07/10/2024 Diabetic Eye Exam 07/18/2024 Labs Kerline already ordered Eye june scottimer requested Care Gap Outreach Action Taken: Outreach not indicated documented in this encounter Plan of Treatment Upcoming Encounters Date Type Department Care Team (Late st Contact Info) Description 07/17/2024 11:45 AM EDT Office Visit Cardiology, [facility] [address] [place] [address] Berna Prince, [address] [place] [id number] 10/19/2024 10:20 AM EDT [facility] [place] [facility] [address] [facility] [place] [phone] Guru Cox MD [address] [facility] [place] [address] Health Maintenance Due Date Last Done Comments Adult Wellness Visit 02/14/2014 Influenza Vaccine (FLU shot) (#1) 2023 Albumin/Creatinine Ratio 07/10/2024 024, 04/18/2022, 02/23/2019, Additional history exists B-12 07/10/2024 07/11/2023, 03/30, 03/29/2021, Additional history exists GFR 07/10/2024 07/11/2023, 03/30, 03/29/2021, Additional history exists Diabetic Eye Exam 07/18/2024 07/19/2023, , 04/30/2013, Additional history exists HbA1c 10/07/2024 04/08/2024, 06/27, 11/16/2022, Additional history exists Depression Screening 01/09/2025 01/10/2024 Diabetic Foot Exam 01/09/2025 01/10/2024, 1 05/07/2019, 08/22/2018, Additional history exists Pneumococcal Vaccine: 50+ Years (1 of 2 - PCV) 01/09/2025 Postponed from 02/14/1967 (Patient Declined After Education) Zoster Vaccines (1 of 2) 01/09/2025 Pos tponed from 02/14/1998 (Patient Declined After Education) DXA Scan 04/20/2025 Postponed from 1950 (Patient Declined After Education) DTap/Tdap Vaccines (2 - Td or Tdap) 08/22/2028 08/22/2018, 11/28/2007, 04/29/1997 Fecal Occult Blood Test Discontinued 05/13/1996 Colonoscopy Discontinued 11/07/2007 Colorectal Cancer Screening Discontinued COVID-19 Vaccine Discontinued Cologuard Discontinued HPV (Gardasil) Vaccine Aged Out No lo nger eligible based on patient's age to complete this topic Hepatitis B Vaccine Aged Out No longe r eligible based on patient's age to complete this topic MENINGOCOCCAL (MENACTRA/MENVEO) Aged Out No longer eligible based on patient's age to complete this topic Meningitis B Vaccine (Bexsero/Trumemba) Aged Out No longer eligible based on patient's age to complete this topic Sigmoidoscopy Discontinued documented as of this encounter Medical Devices Not on filedocumented as of this encounter Care Teams Icicle Machine Operator Relationship Specialty Start Date End Date Guru Cox MD PCP - General 05/01/1998 documented as of this encounter
--- OUTSIDE RECORDS SUMMARY | 2024-07-21 08:05 | External Medical Summary | Summary of Care ---
Author Name Unknown Organization [facility] Address [address] [facility] [place] [address] Phone [phone] Care Team Providers Care Matcher Operator Name Role Phone Guru Cox MD Primary Care Provider [phone] Encounter Details Date Type Department Care Team (Late st Contact Info) Description 04/22/2024 Orders Only PATIENT PORTAL DO NOT DELETE THIS DEPT USED BY [place] [phone] Allergies Active Allergy Reactions Criticality Noted Date Comments Amlodipine Abdominal pain Medium 03/07/2020 Other Allergy (See Comments) Fever 012 dutaxolidin documented as of this encounter (statuses as of 04/22/2024) Medications FISH OIL CONCENTRATE 1000 MG PO [...] A1c goal of less than 8.0% (HCC) TAKE 1 TABLET TWICE A DAY 30 MINUTES BEFORE MORNING AND EVENING MEALS 180 Tablet 07/19/19 24 Active documented as of this encounter (statuses as of 04/22/2024) Active Problems Problem Noted Date Diagnosed Date [...] as of this encounter (statuses as of 04/22/2024) Resolved Problems Problem Noted Date Diagnosed Date [...] as of this encounter (statuses as of 04/22/2024) Immunizations Name Administration Dates Next Due Diptheria/Tetanus [...] 01/08/2024 Does the household have a re lar source of income? 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 Not on file Not on file Not on file Not on file Not on file Not on file documented as of this encounter Plan of Treatment Upcoming Encounters Date Type Department Care Team (Late st Contact Info) Description 07/17/2024 11:45 AM EDT Office Visit Cardiology, [facility] [address] [facility] [place] [address] Berna Prince DO [address] [place] [address] [place] [address] 10/19/2024 10:20 AM EDT Office Visit [facility], [place] [address] [place] [address] Guru Cox MD [address] [place] [phone] Health Maintenance Due Date Last Done Comments [...] 05/07/2019, 08/22/2018, Additional history exists Pneumococcal Vaccine: 65+ Years (1 of 2 - PCV) 01/09/2025 [...] filedocumented as of this encounter Care Teams Matcher Operator Relationship Specialty Start Date End Date Guru Cox MD PCP - General 05/01/1998 documented as of this encounter
--- OUTSIDE RECORDS SUMMARY | 2024-07-21 08:05 | External Medical Summary | Summary of Care ---
Author Name Unknown Organization [facility] Address [address] [address] Phone [phone] Care Team Providers Care Internal Investigator Name Role Phone Guru Cox MD Primary Care Provider [phone] Reason for Referral * Evaluate & Treat - Unlimited Visits (Within 30 days (routine)) - Authorized Specialty Diagnoses / Procedures Referred By Pal reyes Referred To Contact Cardiovascular Medicine / Cardiology Diagnoses PVC's (premature ventricular contractions) Guru Cox MD [address] [place] [address] Phone: tel: fax: Referral ID Status Reason Start Date Expiration Date Visits Requested Visits Authorized [id number] Authorized Specialty Services Required 4 [phone] Question Answer Referral Priority Within 30 days (routine) Where should this appointment be scheduled? [facility] To which of the following clinics are you referring your patient? Arrhythmia/Electrophysiology Clinic Comments Bradycardia/ frequent PVC's Reason for Visit * Reason Comments Follow Up Patient is here toda y for a routine follow up. Patient states no concerns today. Encounter Details Date Type Department Care Team (Late st Contact Info) Description 04/20/2024 9:00 AM EST [facility] [address] [place] [phone] Guru Cox MD [address] [place] [address] PVC's (premature ventricular contractions)*; Type 2 diabetes mellitus with hemoglobin A1c goal of less than 8.0% (HCC); HTN, goal below 140/90; Other hyperlipidemia; Encounter for long-term (current) use of medications; Gouty arthropathy Allergies Active Allergy Reactions Criticality Noted Date Comments Amlodipine Abdominal pain Medium 03/07/2020 Other Allergy (See Comments) Fever 012 dutaxolidin documented as of this encounter (statuses as of 04/20/2024) Medications FISH OIL CONCENTRATE 1000 MG PO [...] by mouth in the morning. 90 Capsule 3 07/19/19 24 Active Simvastatin 20 MG Oral Tablet (Zocor)Indications :Hyperlipidemia, unspecified hyperlipidemia type Take 1 Tablet by mouth at bedtime. 90 Tablet 3 07/19/19 24 Active metFORMIN HCl 1000 MG Oral Tablet (Glucophage)Indica tions:Type 2 diabetes mellitus with hemoglobin A1c goal of less than 8.0% (HCC) Take 1 Tablet by mouth in the morning and 1 Tablet before bedtime. 180 Tablet 3 07/19/19 24 Active Allopurinol 300 MG Oral Tablet (Zyloprim)Indicati ons:Gouty arthropathy Take 1 Tablet by mouth in the morning. 90 Tablet 3 07/19/19 24 Active Atenolol 50 MG Oral Tablet (Tenormin)Indicati ons:Essential hypertension with goal blood pressure less than 140/90 Take 1 Tablet by mouth in the morning. 90 Tablet 3 07/19/19 24 Active Finasteride 5 MG Oral Tablet (Proscar)Indicatio ns:Obstructive uropathy Take 1 Tablet by mouth in the morning. 90 Tablet 3 07/19/19 24 Active hydroCHLOROthiazid e 50 MG Oral Tablet (Hydrodiuril)Indic ations:Essential hypertension with goal blood pressure less than 140/90 Take 1 Tablet by mouth in the morning. 90 Tablet 3 07/19/19 24 Active Lisinopril 40 MG Oral Tablet Take 1 Tablet by mouth in the morning. 90 Tablet 3 07/19/19 24 Active Pioglitazone HCl 30 MG Oral Tablet (Actos)Indications :Type 2 diabetes mellitus with hemoglobin A1c goal of less than 8.0% (HCC) Take 1 Tablet by mouth in the morning. 90 Tablet 3 07/19/19 24 Active glipiZIDE 5 MG Oral Tablet (Glucotrol)Indicat ions:Type 2 diabetes mellitus with hemoglobin A1c goal of less than 8.0% (HCC) TAKE 1 TABLET TWICE A DAY 30 MINUTES BEFORE MORNING AND EVENING MEALS 180 Tablet 3 07/19/19 24 Active documented as of this encounter (statuses as of 04/20/2024) Active Problems Problem Noted Date Diagnosed Date [...] as of this encounter (statuses as of 04/20/2024) Resolved Problems Problem Noted Date Diagnosed Date [...] as of this encounter (statuses as of 04/20/2024) Immunizations Name Administration Dates Next Due Diptheria/Tetanus [...] file Not on file 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 on 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 Not on file Not on file Not on file Not on file Not on file Not on file documented as of this encounter Last Filed Vital Signs Vital Sign Reading Time Taken Comments Blood Pressure 152/72 04/20/2024 8:52 AM EST Pulse 40 04/20/2024 8:52 AM EST Temperature 34.7 C (94.5 F) 04/20/2024 8:52 AM ES T Respiratory Rate 16 04/20/2024 8:52 AM EST Oxygen Saturation 97% 04/20/2024 8:52 AM EST Inhaled Oxygen Concentration - - Weight 121.4 kg (267 lb 11.2 oz) 04/20/2024 8:52 AM EST Height 175.3 cm (5' 9") 04/20/2024 8:5 2 AM EST Body Mass Index 39.53 04/20/2024 8:52 AM EST documented in this encounter Progress Notes * Guru Cox MD - 04/20/2024 9:12 AM EST Subjective: Aubrey Adhikari is a 74 year old male. Chief Complaint Patient presents with Follow Up Patient is here today for a routine follow up. Patient states no concerns today. HPI: 74-year-old for six-month recheck. Known history of type 2 diabetes and hypertension hyperlipidemia. History of obstructive sleep apnea. He tells me he is using his CPAP. I had seen him recentlywith some vague symptoms of just not feeling well. His Zio monitor did not show significant bradycardia which was my concern but did show significant number of premature ventricular contractions. No nonsustained ventricular tach. He is not having chest discomfort. No real shortness of breath but more fatigue. Patient Active Problem List Diagnosis Gout Severe obstructive sleep apnea Vitamin D deficiency Obstructive uropathy Type 2 diabetes mellitus with hemoglobin A1c goal of less than 8.0% ([facility]) HTN, goal below 140/90 Hyperlipidemia Body mass index (BMI) of 40.0 to 44.9 in adult ([facility]) History of kidney stones Morbid obesity with body mass index of 40.0-44.9 in adult ([facility]) Current Outpatient Medications Medication Sig Dispense Refill FISH OIL CONCENTRATE 1000 MG PO CAPS 1 tab twice daily 60 11 ASPIRIN EC 81 MG PO TBEC Take one pill daily 100 Tab 3 VITAMIN D 1000 UNIT PO CAPS 1 capsule daily 30 Cap 11 Tamsulosin HCl 0.4 MG Oral Capsule (Flomax) Take 1 Capsule by mouth in the morning. 90 Capsule 3 Simvastatin 20 MG Oral Tablet (Zocor) Take 1 Tablet by mouth at bedtime. 90 Tablet 3 metFORMIN HCl 1000 MG Oral Tablet (Glucophage) Take 1 Tablet by mouth in the morning and 1 Tablet before bedtime. 180 Tablet 3 Allopurinol 300 MG Oral Tablet (Zyloprim) Take 1 Tablet by mouth in the morning. 90 Tablet 3 Atenolol 50 MG Oral Tablet (Tenormin) Take 1 Tablet by mouth in the morning. 90 Tablet 3 Finasteride 5 MG Oral Tablet (Proscar) Take 1 Tablet by mouth in the morning. 90 Tablet 3 hydroCHLOROthiazide 50 MG Oral Tablet (Hydrodiuril) Take 1 Tablet by mouth in the morning. 90 Tablet 3 Lisinopril 40 MG Oral Tablet Take 1 Tablet by mouth in the morning. 90 Tablet 3 Pioglitazone HCl 30 MG Oral Tablet (Actos) Take 1 Tablet by mouth in the morning. 90 Tablet 3 glipiZIDE 5 MG Oral Tablet (Glucotrol) TAKE 1 TABLET TWICE A DAY 30 MINUTES BEFORE MORNING AND EVENING MEALS 180 Tablet 3 Glucose Blood (ONETOUCH TEST) STRP Testing blood sugars twice daily Dx. E11.9 (Patient not taking: Reported on 04/20/2024) 100 Strip 1 Lancets Thin MISC Testing sugars twice daily Dx: E11.9 (Patient not taking: Reported on 04/20/2024) [address] No current facility-administered medications for this visit. Review of patient's allergies indicates: Allergen Reactions Amlodipine Abdominal pain Other Allergy (See Comments) Fever dutaxolidin Objective: BP 152/72 (BP Site: Right Arm, BP Position: Sitting, BP Cuff Size: Regular) | Pulse 40 | Temp (!) 94.5 F (34.7 C) (Tympanic) | Resp 16 | Ht 5' 9" (1.753 m) | Wt 267 lb 11.2 oz (121.4 kg) | SpO2 97% | BMI 39.53 kg/m | BSA 2.43 m Physical Exam: Note elevated blood pressure CONST: alert, pleasant, no acute distress HEAD: normocephalic, atraumatic NECK: supple, soft, no adenopathy EARS: canals normal, TMs normal NARES: clear Eyes - PERRLA, EOM'I OROPHARYNX: clear, no swelling or erythema, moist CV: regular rate and rhythm, no murmur CHEST: clear to auscultation bilaterally, no rales or wheezing ABD: soft, non tender, non distended, no masses or hepatosplenomegaly EXT: no edema, no joint swelling or deformities, NEURO: AAOx3, no gross focal deficits, cerebellar signs normal, affect appropriate MENTAL STATUS: no evidence of thought disorder, no delusional thought, no evidence of paranoia, thought is non-tangential. SKIN: no rash or significant lesions ASSESSMENT/PLAN: Type 2 diabetes mellitus with hemoglobin A1c goal of less than 8.0% ([facility]) Stable Ventricular ectopy-primarily isolated PVCs. Relatively low heart rate. He is reeluctant but agrees to see (electrophysiologic cardiology) dr Velasco for her opinion. Could increase Beta Sandoval but relatively low heart rate HTN- slightly elevated. He can do some BP readings at home. Guru Cox MD documented in this encounter Nursing Notes * Viji TapiaLINDSEY - 04/20/2024 8:57 AM EST The patient has been properly identified by confirmation of name and date of . Chief Complaint Patient presents with Follow Up Patient is here today for a routine follow up. Patient states no concerns today. documented in this encounter Plan of Treatment Upcoming Encounters Date Type Department Care Team (Late st Contact Info) Description 07/17/2024 11:45 AM EDT Office Visit Cardiology, [facility] [address] [facility] [place] [address] Berna Prince DO [address] [place] [id number] 10/19/2024 10:20 AM EDT [facility] [place] [address] [place] [phone] Guru Cox MD [address] [facility] [place] [phone] Scheduled Orders Name Type Priority Associated Diagnoses Orde r Schedule ALBUMIN / CREATININE RATIO, URINE Lab Routine Type 2 diabetes mellitus with hemoglobin A1c goal of less than 8.0% (HCC) Expected: 04/20/2024, Expires: 04/20/2025 COMPREHENSIVE METABOLIC PANEL Lab Routine Type 2 diabetes mellitus with hemoglobin A1c goal of less than 8.0% (HCC) Expected: 04/20/2024 (Approximate), Expires: 04/20/2025 LIPID PANEL WITH DIRECT LDL IF TG IS HIGH Lab Routine Other hyperlipidemia Expected: 04/20/2024, Expires: 04/20/2025 URIC ACID Lab Routine Gouty arthropathy Expected: 04/20/2024 (Approximate), Expires: 04/20/2025 VITAMIN B12 Lab Routine Encounter for long-term (current) use of medications Expected: 04/20/2024 (Approximate), Expires: 04/20/2025 Scheduled Referrals Name Type Priority Associated Diagnoses Orde r Schedule CARDIOLOGY REFERRAL OP Referral Within 30 days (routine) PVC's (premature ventricular contractions) Ordered: 04/20/2024 Health Maintenance Due Date Last Done Comments [...] Not on filedocumented as of this encounter Visit Diagnoses Diagnosis PVC's (premature ventricular contractions)- Primary Other premature beats Type 2 diabetes mellitus with hemoglobin A1c goal of less than 8.0% (HCC) HTN, goal below 140/90 Unspecified essential hypertension Other hyperlipidemia Encounter for long-term (current) use of medications Encounter for long-term (current) use of other medications Gouty arthropathy Gouty arthropathy, unspecified documented in this encounter Care Teams Internal Investigator Relationship Specialty Start Date End Date Guru Cox MD PCP - General 05/01/1998 documented as of this encounter
--- OUTSIDE RECORDS SUMMARY | 2024-07-21 08:05 | External Medical Summary | Summary of Care ---
Author Name Unknown Organization [facility] Address [address] [place] [address] Phone [phone] Care Team Providers Care Train Gateman Name Role Phone Guru Cox MD Primary Care Provider [phone] Reason for Visit * Reason Onset Date Comments Referral 04/27/2024 Encounter Details Date Type Department Care Team (Late st Contact Info) Description 04/27/2024 New Patient Triage (SALVAGE [employer]CH[employer]IC USE ONLY) Cardiology, [facility] [address] [place] [address] Ella Lopez CRNP [address] [place] [address] Referral Allergies Active Allergy Reactions Criticality Noted Date Comments Amlodipine Abdominal pain Medium 03/07/2020 Other Allergy (See Comments) Fever 012 dutaxolidin documented as of this encounter (statuses as of 05/02/2024) Medications FISH OIL CONCENTRATE 1000 MG PO [...] as of this encounter (statuses as of 05/02/2024) Active Problems Problem Noted Date Diagnosed Date [...] as of this encounter (statuses as of 05/02/2024) Resolved Problems Problem Noted Date Diagnosed Date [...] as of this encounter (statuses as of 05/02/2024) Immunizations Name Administration Dates Next Due Diptheria/Tetanus [...] the money to buy more. Never true 09/11/20 24 Within the past 12 months, t [...] on file documented as of this encounter Progress Notes * Marcela Santos CRNP - 05/02/2024 7:30 AM EST Does patient need to be seen?: Yes Modality: Office visit Urgency: Within 30 days (routine) Discussed care plan with patient or proxy?: Yes MyChart Communicated with patient on Date (/dd/yy): 04/27/2024 at Time ([facility]): [phone] 74 year old male referred by his PCP for ongoing concerns of increased PVC with accompanied bradycardia. ZIO monitor was obtained by PCP (dec 2023) and is on chart for review. Agreeable to see EP tofurther discuss treatment options Zio results: REASON FOR STUDY: Low heart rate CONCLUSIONS: Duration: 10 days Patient had a min HR of 40 bpm, max HR of 140 bpm, and avg HR of 59 bpm. Predominant underlying rhythm was Sinus Rhythm. 41 Supraventricular Tachycardia runs occurred, the run with the fastest interval lasting 6 beats with a max rate of 140 bpm, the longest lasting 10 beats with an avg rate of 106 bpm. Isolated SVEs were rare (<1.0%), SVE Couplets were rare (<1.0%), and SVE Triplets were rare (<1.0%). Isolated VEs were frequent (21.8%, [id number]), VE Couplets were rare (<1.0%, 278), and VE Triplets were rare (<1.0%, 7). Ventricular Bigeminy and Trigeminy were present. No recent EKG or Echocardiogram on file. Will need EKG on day of visit. Provider will decide at time of examination what further testing will be needed. Appropriate referral with EP. Thank you, OSMANY Collins Cardiology [facility] * Jon Hastings LPN - 04/27/2024 3:40 PM EST New Patient Triage What is the diagnosis/reason for referral?: PVC's (premature ventricular contractions) Enter order ID here: [id number] Specialty specific documentation: Cardiology Structural Heart Discussed care plan with patient or proxy?: Yes via Your Image by [employer] Communicated with patient on Date (mm/dd/yyyy): 04/27/2024 at Time ([facility]): 15:50 pm Patient referred for fatigue and Zio findings. 10 day Zio completed December 2023. No recent EKG'sor other cardiac testing on file. Zio results: REASON FOR STUDY: Low heart rate CONCLUSIONS: Duration: 10 days Patient had a min HR of 40 bpm, max HR of 140 bpm, and avg HR of 59 bpm. Predominant underlying rhythm was Sinus Rhythm. 41 Supraventricular Tachycardia runs occurred, the run with the fastest interval lasting 6 beats with a max rate of 140 bpm, the longest lasting 10 beats with an avg rate of 106 bpm. Isolated SVEs were rare (<1.0%), SVE Couplets were rare (<1.0%), and SVE Triplets were rare (<1.0%). Isolated VEs were frequent (21.8%, [id number]), VE Couplets were rare (<1.0%, 278), and VE Triplets were rare (<1.0%, 7). Ventricular Bigeminy and Trigeminy were present. No symptoms reported. OV notes: 01/10/24 HPI: 73-year-old is seen today as a Um non routine visit. He has a couple of different issues. He notes when he has cataracts done about 4 months ago that he was noted to have low heart rate. He overheard what was probably the surgeon in the anesthesiologist discussing it but they never said anything to him. We have measured his heart rate and found him to be bradycardic on routine visit down to as low as 50. Additionally he notes that he can not walk long distances because he gets fatigued andexhausted. It is unclear whether there is a direct relationship between the bradycardia in his decreased exercise tolerance. Ventricular ectopy-primarily isolated PVCs. Relatively low heart rate. He is reeluctant but agrees to see (electrophysiologic cardiology) dr Velasco for her opinion. Could increase Beta Sandoval but relatively low heart rate HTN- slightly elevated. He can do some BP readings at home. 04/20/24: 74-year-old for six-month recheck. Known history of type 2 diabetes and hypertension hyperlipidemia. History of obstructive sleep apnea. He tells me he is using his CPAP. I had seen him recently withsome vague symptoms of just not feeling well. His Zio monitor did not show significant bradycardia which was my concern but did show significant number of premature ventricular contractions. No nonsustained ventricular tach. He is not having chest discomfort. No real shortness of breath but more fatigue. Ventricular ectopy-primarily isolated PVCs. Relatively low heart rate. He is reeluctant but agrees to see (electrophysiologic cardiology) dr Velasco for her opinion. Could increase Beta Sandoval but relatively low heart rate HTN- slightly elevated. He can do some BP readings at home. documented in this encounter Plan of Treatment Upcoming Encounters Date Type Department Care Team (Late st Contact Info) Description 07/17/2024 11:45 AM EDT Office Visit Cardiology, [facility] [address] [facility] [place] [address] Berna Prince, DO [address] [facility] [place] [phone] 10/19/2024 10:20 AM EDT Office Visit [facility] [address] [facility] [phone] Guru Cox MD [address] [facility] [place] [address] Health Maintenance Due Date Last Done Comments [...] filedocumented as of this encounter Care Teams Train Gateman Relationship Specialty Start Date End Date Guru Cox MD PCP - General 05/01/1998 documented as of this encounter
--- OUTSIDE RECORDS SUMMARY | 2024-07-21 08:05 | External Medical Summary | Summary of Care ---
Author Name Unknown Organization [facility] Address [address] [facility] [place] [address] Phone [phone] Care Team Providers Care Computer Analyst Supervisor Name Role Phone Guru Cox MD Primary Care Provider [phone] Encounter Details Date Type Department Care Team (Late st Contact Info) Description 05/21/2024 Population Health External Data Unspecified Department Allergies Active Allergy Reactions Criticality Noted Date Comments Amlodipine Abdominal pain Medium 03/07/2020 Other Allergy (See Comments) Fever 012 dutaxolidin documented as of this encounter (statuses as of 05/21/2024) Medications FISH OIL CONCENTRATE 1000 MG PO [...] as of this encounter (statuses as of 05/21/2024) Active Problems Problem Noted Date Diagnosed Date [...] as of this encounter (statuses as of 05/21/2024) Resolved Problems Problem Noted Date Diagnosed Date [...] as of this encounter (statuses as of 05/21/2024) Immunizations Name Administration Dates Next Due Diptheria/Tetanus [...] No 01/08/2024 Does the household have a [facility] [facility] source of income? 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 Not on file Not on file Not on file Not on file Not on file Not on file documented as of this encounter Plan of Treatment Upcoming Encounters Date Type Department Care Team (Late st Contact Info) Description 07/17/2024 11:45 AM EDT Office Visit Cardiology, [facility] [address] [facility] [place] [address] Berna Prince, DO [address] [place] [address] [place] [address] 10/19/2024 10:20 AM EDT [facility] [place] [facility] [address] [place] [phone] Guru Cox MD [address] [place] [address] Health Maintenance Due Date Last Done Comments [...] filedocumented as of this encounter Care Teams Computer Analyst Supervisor Relationship Specialty Start Date End Date Guru Cox MD PCP - General 05/01/1998 documented as of this encounter
--- OUTSIDE RECORDS SUMMARY | 2024-07-21 08:06 | External Medical Summary | Summary of Care ---
Author Name Unknown Organization [facility] Address [address] [facility] [place] [address] Phone [phone] Care Team Providers Care Bag Turner Name Role Phone Guru Cox MD Primary Care Provider [phone] Reason for Visit * Reason Comments Outpatient Testing Encounter Details Date Type Department Care Team (Late st Contact Info) Description 04/08/2024 11:50 AM EST Laboratory Laboratory, [facility] [address] [place] [phone] [facility] [address], [place] [phone] Type 2 diabetes mellitus with hemoglobin A1c goal of less than 8.0% ([facility]) Allergies Active Allergy Reactions Criticality Noted Date Comments Amlodipine Abdominal pain Medium 03/07/2020 Other Allergy (See Comments) Fever 012 dutaxolidin documented as of this encounter (statuses as of 04/08/2024) Medications FISH OIL CONCENTRATE 1000 MG PO [...] Active Additional Information Patient not taking.Reported on 07/19/2023 Lancets Thin MISCIndications:DM type 2, goal A1c below 7 Testing sugars twice daily Dx: E11.9 [address] 05/02/19 16 Active Additional Information Patient not taking.Reported on 07/19/2023 Tamsulosin HCl 0.4 MG Oral Capsule (Flomax)Indication [...] as of this encounter (statuses as of 04/08/2024) Active Problems Problem Noted Date Diagnosed Date Morbid obesity with body mass index of [...] as of this encounter (statuses as of 04/08/2024) Resolved Problems Problem Noted Date Diagnosed Date [...] as of this encounter (statuses as of 04/08/2024) Immunizations Name Administration Dates Next Due Diptheria/Tetanus [...] file Not on 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 Not on file Not on file Not on file Not on file Not on file documented as of this encounter Plan of Treatment Upcoming Encounters Date Type Department Care Team (Late st Contact Info) Description 04/20/2024 9:00 AM EST [facility] [place] [facility] [address] [place] [phone] Guru Cox MD [address] [place] [address] Pending Results Name Type Priority Associated Diagnoses Date /Time HEMOGLOBIN A1C Lab Routine Type 2 diabetes mellitus with hemoglobin A1c goal of less than 8.0% ([facility]) 04/08/2024 11:49 AM EST Health Maintenance Due Date Last Done Comments DXA Scan 1950 Adult Wellness Visit 02/14/2014 Influenza Vaccine (FLU shot) (#1) 2023 HbA1c 01/11/2024 07/11/2023, 10/28, 04/18/2022, Additional history exists Albumin/Creatinine Ratio 07/10/2024 024, 04/18/2022, 02/23/2019, Additional history exists B-12 07/10/2024 07/11/2023, 03/30, 03/29/2021, Additional history exists GFR 07/10/2024 07/11/2023, 03/30, 03/29/2021, Additional history exists Diabetic Eye Exam 07/18/2024 07/19/2023, , 04/30/2013, Additional history exists Depression Screening 01/09/2025 01/10/2024 Diabetic Foot Exam 01/09/2025 01/10/2024, 1 05/07/2019, 08/22/2018, Additional history exists Pneumococcal Vaccine: 65+ Years (1 of 2 - PCV) 01/09/2025 Postponed from 02[birth year]14/1956 (Patient Declined After Education) Zoster Vaccines (1 of 2) 01/09/2025 Pos tponed from 02/14/1998 (Patient Declined After Education) DTap/Tdap Vaccines (2 [...] as of this encounter Visit Diagnoses Diagnosis Type 2 diabetes mellitus with hemoglobin A1c goal of less than 8.0% (HCC) documented in this encounter Care Teams Bag Turner Relationship Specialty Start Date End Date Guru Cox MD [address] [place] [address] PCP - General 05/01/1998 documented as of this encounter
--- OUTSIDE RECORDS SUMMARY | 2024-07-21 08:06 | External Medical Summary ---
Author Name Unknown Address Unknown Organization K01:[facility] [place] - [address] [facility] [address] Laboratory Report Ordering Provider Test Date Status RON WELLINGTONANABELLA 04/08/2024 11:49:34 Final Observation Date Value Abnormality Reference (Units ) Status HbA1C 04/08/2024 11:49:34 6.8 Above high normal 4. 0-5.6 (%) Final The use of HbA1c to monitor glycemic status is based on normal hemoglobin and HbA composition. This test should not be used in patients with abnormal hemoglobin that affects the half life of the red blood cell or the in vivo glycation rates. Glucose, estimated average 04/08/2024 11:49:34 148 Above high normal <126 (mg/dL) Mohinder mao Performing Location [facility] [place] - [address] [facility] [address]
[2024-07-21] MEDS: ASPIRIN 81 MG ECTAB PO SCH (08:31)
[2024-07-21] MEDS: dexAMETHasone 6 MG in SYRINGE 0 ML IV SCH (08:31)
[2024-07-21] MEDS: TAMSULOSIN HCL 0.4 MG CAP PO SCH (08:32)
[2024-07-21] MEDS: METOPROLOL SUCC 25MG EXT REL TAB PO SCH (08:32)
[2024-07-21] MEDS: ENOXAPARIN INJ 40 MG/0.4 ML SYR SQ SCH (08:32)
[2024-07-21] MEDS: lisinopril 40 MG TAB PO SCH (08:32)
[2024-07-21] MEDS: DOXYCYCLINE HYCLATE 100 MG CAP PO SCH (08:32)
[2024-07-21] MEDS: allopurinoL 300 MG TAB PO SCH (08:32)
--- NOTE | 2024-07-21 13:28 | Electrocardiogram Report ---
Test Reason : Blood Pressure : */* mmHG Vent. Rate : 78 BPM Atrial Rate : 78 BPM P-R Int : 180 ms QRS Dur : 98 ms QT Int : 386 ms P-R-T Axes : 24 -36 21 degrees QTcB Int : 440 ms Normal sinus rhythm Left axis deviation Pulmonary disease pattern Moderate voltage criteria for LVH, may be normal variant ( R in aVL ) Abnormal ECG No previous ECGs available Confirmed by Sachin Vaughan ([id number]) on 07/21/2024 1:27:37 PM Referred By: Guru Cox Confirmed By: Sachin Vaughan
--- NOTE | 2024-07-21 15:10 | Hospitalist Progress Note ---
Date of Service July 21, 2024 Assessment & Plan (1) Acute hypoxemic respiratory failure: Plan: COVID-19 pneumonia likely with superimposed bacterial infection Mild CHF, likely acute HFpEF Hypoxia: likely 2/2 COVID 19 infection. No mention of respiratory distress in admitting exam. VBG nl at presentation. Patient presented with shortness of breath with exertion and cough with yellowish sputum since about 4 days [employer]. COVID-19 virus positive, BNP elevated at 389, CXR with mild congestion, VBG fairly WNL. Echo with EF of 50 to 55%, grade 1 diastolic dysfunction. No regional wall motion abnormalities. Left atrium mildly dilated. Patient started on dexamethasone, doxycycline, Lovenox subcu, remdesivir. Continue. Wean down oxygen as tolerated, incentive spirometer. Continue to provide supportive care, enhanced precautions. S/p 1 dose of lasix at presentation, Cardiology consult, await recommendation. Strict I/Os, daily weights, CHF education Likely Pioglitazone needs to be dc'd at discharge due to s/e of fluid retentio n/HF, will get A1c in AM to assess DM status. Other chronic medical conditions: Continue with/resume home meds as when able. hypertension and troponin, elevated secondary to illness hyperlipidemia, on statin Rx PVCs, patient recently started GMG EPS on Lopressor in place of home atenolol TALI on CPAP DM2 on oral medications, well-controlled as of recent hemoglobin A1c of 6.05 April 2024 morbid obesity DVT prophylaxis per Lovenox subcu Full code Patient Ms. Albertina Adhikari, contact number# [phone]. Pt's was given phone call, updated, answered all her questions. Text document was generated using [employer] voice recognition software. It may contain grammatical or spelling errors. Kindly contact undersigned for clarification of any documentation item in question. Admission and Anticipated Discharge Date Admission Date: July 20, 2024 Subjective Patient was seen and examined at bedside. Patient was sitting up in bed, on 2 L oxygen via nasal cannula, NAD, resting comfortably. Patient reports improvement in his cough frequency, reports improvement in his breathing. Patient reported having cough with yellow sputum, shortness of breath with exertion since Saturday associated with fever during Saturday and Saturday. Physical Exam Physical Exam: GENERAL: Comfortable, obese, no respiratory distress, on 2L NC O2. SKIN: Normal color, warm HEENT: Geiger palpebral conjunctivae, no ptosis, moist buccal mucosa, nasal cannula in place NECK : Supple, short neck, no tenderness CHEST : Decreased breath sounds likely due to habitus, no tenderness HEART : RRR, no obvious murmurs ABDOMEN: Some distention, nontender EXTREMITIES : No LE swelling/tenderness, palpable pulses, no other conspicuous deformities noted NEUROLOGIC : Coherent, no facial asymmetry, no other gross focality Results & Data Results & Data Vital Signs (Past 12 Hours) Vital Signs Temp Pulse Pulse Resp BP Pulse Ox Pulse Ox 07/21/24 14:11 66 07/21/24 11:45 36.5 C 52 L 18 156/73 H 93 07/21/24 08:00 69 07/21/24 08:00 07/21/24 08:00 96 07/21/24 07:50 36.7 C 80 19 179/90 H 96 O2 Del Method O2 Del Method O2 Flow Rate O2 Flow Rate 07/21/24 14:11 07/21/24 11:45 Room Air 07/21/24 08:00 07/21/24 08:00 Nasal Cannula 2 07/21/24 08:00 Nasal Cannula 2 07/21/24 07:50 Room Air
[2024-07-21] MEDS: PANTOprazole 40 MG TAB PO SCH (16:31)
--- NOTE | 2024-07-21 17:21 | Cardiology Consultation ---
Date of Consultation July 21, 2024 Assessment & Plan (1) Acute hypoxemic respiratory failure: (2) COVID-19: Patient with mild fluid overload that seems to have improved after receiving a dose of IV furosemide last evening. He may need an additional as needed dose within the next 24 hours given adminis tration of dexamethasone and IV fluid with the doxycycline and remdesivir. Echocardiogram performed this hospital stay 07/21/2024 revealed mild concentric left ventricular hypertrophy, low normal LVEF in the range of 50 to 55% with mild left atrial enlargement and grade 1 diastolic dysfunction. A mild, flat elevation in high-sensitivity troponin was noted to x 2. Patient without any symptoms suggestive angina and I think this is likely due to myocardial strain from his infectious process. Consider repeating a PA and lateral chest x-ray after the patient is no longer on isolation precautions. Please contact cardiology with additional questions or concerns. Will work on canceling the patient's outpatient echocardiogram appointment. History of Present Illness Attending Physician: Jonathan Monteiro MD History of Present Illness Mr Adhikari is a 74-year-old male seen in cardiology consultation per the request of Dr. Fleming due to clinical concerns of congestive heart failure. The patient was admitted via the emergency department last night with complaints of subjective fever, cough productive of yellow sputum, body aches, and sore throat. He tested positive for SARS-CoV-2. He has received treatment with remdesivir and dexamethasone and subjective feeling who feels improved. He is afebrile. He denies any shortness of breath, chest discomfort or orthopnea. He describes a longstanding history of premature ventricular contractions and had recently been seen by Dr. Prince of [facility] electrophysiology as an outpatient. Atenolol was transitioned to metoprolol at the time of that visit. An echocardiogram was ordered which in turn was performed today in the hospital with results as noted below. Allergies Allergy/AdvReac Type Severity Reaction Status Date / Time phenylbutazone Allergy Intermediate Fever Verified 07/20/24 22:17 amlodipine AdvReac Mild Gastrointestinal Verified 07/20/24 22:18 Upset Home Medications Medication Instructions Recorded Confirmed Type allopurinol 300 mg tablet 300 mg PO QAM 08/12/23 07/20/24 History aspirin 81 mg tablet,delayed 81 mg PO DAILY 08/12/23 07/20/24 History release finasteride 5 mg tablet 5 mg PO HS 08/12/23 07/20/24 History glipizide 5 mg tablet 5 mg PO BID 08/12/23 07/20/24 History hydrochlorothiazide 50 mg tablet 50 mg PO QAM 08/12/23 07/20/24 History lisinopril 40 mg tablet 40 mg PO QAM 08/12/23 07/20/24 History metformin 1,000 mg tablet 1,000 mg PO AMHS 08/12/23 07/20/24 History omega 5-ymy-kqj-fish oil 1,000 mg 1 cap PO BID 08/12/23 07/20/24 History (120 mg-180 mg) capsule (Fish Oil) pioglitazone 30 mg tablet 30 mg PO QAM 08/12/23 07/20/24 History tamsulosin 0.4 mg capsule 0.8 mg PO QAM 08/12/23 07/20/24 History cholecalciferol (vitamin D3) 25 1,000 unit PO DAILY 07/20/24 07/20/24 History mcg (1,000 unit) capsule (Vitamin D3) metoprolol succinate 25 mg 25 mg PO DAILY 07/20/24 07/20/24 History tablet,extended release 24 hr simvastatin 20 mg tablet 20 mg PO HS 07/20/24 07/20/24 History Patient History Medical History Arthritis BPH (benign prostatic hyperplasia) Gallstones present, no issues Diabetes mellitus, type 2 Hypertension Hyperlipidemia Sleep apnea cpap Surgical History History of right cataract extraction History of colonoscopy History of tooth extraction Hx of knee surgery in 60's can't recall which knee cap repaired History of lithotripsy Family History Grandfather (Paternal) Colon cancer Sister Diabetes Brother Diabetes Social History Smoking Status: Never smoker Second Hand Exposure: No; Do You Dip or Chew Tobacco: No; Hx Alcohol Use: No Hx Substance Use: No Preferred Language: Uzbek Communication Ability: Effective Fittings Tight[employer] Required: No Beliefs That Will Affect Care: None Current Living Situation: Spouse Current Living Situation Comment: Lives w/ at home Feels Safe at Home: Yes Safety Concerns: Feels Safe At This Time Assistive Devices: CPAP Review of Systems Review of Systems: All systems reviewed & are unremarkable except as noted in HPI & below Physical Exam Physical Exam: General: no acute distress and stated age Eyes: conjunctiva are pink and non-injected, sclera clear Neck: normal jugular venous pulse, no hepatojugular reflux Chest: normal shape and normal respiratory effort Lungs: clear to auscultation and percussion Cardiac Exam: - regular heart sounds, no murmurs, rubs, or gallops, no jugular venous distention Abdomen: abdomen soft, non-tender, no abnormal masses and no hepatosplenomegaly Musculoskeletal: no gait disturbance, no weakness Extremities: no edema and no cyanosis Neuro:awake, conversant, follows commands, no focal motor deficits Psych: appropriate affect and insight. Results & Data Vital Signs (Past 12 Hours) Vital Signs Temp Pulse Pulse Resp BP Pulse Ox Pulse Ox 07/21/24 16:11 36.6 C 69 19 145/62 H 91 07/21/24 16:00 07/21/24 14:11 66 07/21/24 11:45 36.5 C 52 L 18 156/73 H 93 07/21/24 08:00 69 07/21/24 08:00 07/21/24 08:00 96 07/21/24 07:50 36.7 C 80 19 179/90 H 96 O2 Del Method O2 Del Method O2 Flow Rate O2 Flow Rate 07/21/24 16:11 Room Air 07/21/24 16:00 Room Air 07/21/24 14:11 07/21/24 11:45 Room Air 07/21/24 08:00 07/21/24 08:00 Nasal Cannula 2 07/21/24 08:00 Nasal Cannula 2 07/21/24 07:50 Room Air Laboratory Results EKG performed 07/20/2024 and interpret independently: Normal sinus rhythm 78 bpm, voltage criteria for left ventricular hypertrophy noted Telemetry reveals sinus rhythm with occasional PVCs. Portable chest x-ray performed on presentation to the emergency department and the radiology report suggest possible interstitial edema and a left pleural effusion cannot be excluded. Per my review of the film, it is somewhat technically limited. proBNP was minimally elevated at 309 PG per mL
[2024-07-21] MEDS: SIMVASTATIN 20 MG TAB PO SCH (20:09)
[2024-07-21] MEDS: FINASTERIDE 5 MG TAB PO SCH (20:09)
[2024-07-21] MEDS: REMDESIVIR 100 MG in SODIUM CHLORIDE 0.9% 230 ML IV SCH (21:13)
[2024-07-22 07:50] VITALS: TEMP 98.1
[2024-07-22 08:11] LABS: Hematocrit (blood only) 41.8 % (42.0-52.0); Hemoglobin 13.9 g/dl (14.0-18.0); Mean Corpuscular Hemoglobin 29.6 pg (25.0-34.0); Mean Corpuscular Hgb Conc 33.3 g/dL (32.0-36.0); Mean Corpuscular Volume 89.1 fL (80.0-100.0); Mean Platelet Volume 11.2 fL (9.4-12.4); Platelet Count 238 K/uL (130-400); RDW Coefficient of Variation 13.2 % (11.5-14.5); RDW Standard Deviation 43.2 fL (36.4-46.3); Red Blood Count 4.69 M/uL (4.70-6.10); White Blood Count 7.91 K/ul (4.8-10.8)
[2024-07-22 08:30] LABS: Albumin Level 3.5 gm/dl (3.4-5.0); BUN Creatinine Ratio 27.5 (10-20); Bilirubin Direct 0.2 mg/dl (0-0.2); Bilirubin,Total 0.5 mg/dl (0.2-1.0); Calcium 8.8 mg/dl (8.6-10.3); Creatinine Clr Calc Pharmacy 89.7 ml/min; Magnesium 1.8 mg/dl (1.7-2.4); Potassium 3.7 mmol/L (3.5-5.1); Total Protein 6.9 gm/dl (6.0-8.3)
[2024-07-22 08:36] LABS: Estimated Average Glucose 148 mg/dl; Hemoglobin A1C 6.8 % (4.5-5.6)
[2024-07-22 11:48] VITALS: RESP 18; O2SAT 93
[2024-07-22 12:00] VITALS: BP 134/72
--- NOTE | 2024-07-22 13:08 | Hospitalist Progress Note ---
Date of Service July 22, 2024 Assessment & Plan (1) Acute hypoxemic respiratory failure: Plan: COVID-19 pneumonia likely with superimposed bacterial infection Mild CHF, likely acute HFpEF Hypoxia: likely 2/2 COVID 19 infection. No mention of respiratory distress in admitting exam. VBG nl at presentation. Patient presented with shortness of breath with exertion and cough with yellowish sputum since about 4 days [employer]. COVID-19 virus positive, BNP elevated at 389, CXR with mild congestion, VBG fairly WNL. Echo with EF of 50 to 55%, grade 1 diastolic dysfunction. No regional wall motion abnormalities. Left atrium mildly dilated. Patient started on dexamethasone, doxycycline, Lovenox subcu, remdesivir. Continue. Wean down oxygen as tolerated, incentive spirometer. Continue to provide supportive care, enhanced precautions. S/p 1 dose of lasix at presentation, Cardiology consult, await recommendation. Strict I/Os, daily weights, CHF education Likely Pioglitazone needs to be dc'd at discharge due to s/e of fluid retentio n/HF, will get A1c in AM to assess DM status. Clinically much better today and denies any significant symptoms Hemoglobin A1c 6.8 and will advised to discontinue Pioglitazone to decrease fluid retention Appreciate cardiology input and recommendation Has had more than 3 L of negative balance and denies any symptoms with ambulation and remains saturated on room air Will be discharged home on doxycycline and dexamethasone to finish the course Advised to follow COVID precaution for the next 8 days Other chronic medical conditions: Continue with/resume home meds as when able. hypertension and troponin, elevated secondary to illness hyperlipidemia, on statin Rx PVCs, patient recently started GMG EPS on Lopressor in place of home atenolol TALI on CPAP DM2 on oral medications, well-controlled as of recent hemoglobin A1c of 6.05 April 2024 morbid obesity DVT prophylaxis per Lovenox subcu Full code Patient Ms. Albertina Adhikari, contact number# [phone]. Pt's was given phone call, updated, answered all her questions. Text document was generated using [employer] voice recognition software. It may contain grammatical or spelling errors. Kindly contact undersigned for clarification of any documentation item in question. Admission and Anticipated Discharge Date Admission Date: July 20, 2024 Subjective 07/22/2024 The patient was seen and examined in telemetry unit He has been feeling much better and denies any symptoms Denies any shortness of breath, cough, any chest pain or palpitation He has been moving around in the hallway without any symptoms and has not been requiring any oxygen He wants to be discharged this afternoon Review of Systems Review of Systems: All systems reviewed and are unremarkable except as noted below Physical Exam Physical Exam: Lying in bed without any acute distress Constitutional: well developed, well nourished and + obese; not ill appearing Eyes: subconjunctival hemorrhage on the left eye ENMT: external ear and nose normal, oropharynx normal Neck: trachea midline, no thyromegaly Respiratory: normal respiratory effort; no respiratory distress Auscultation: lungs clear to auscultation bilaterally Cardiovascular: Rate/Rhythm: regular rate and regular rhythm; not tachycardic Heart Sounds: normal S1 and normal S2; no murmur Extremities: no edema Gastrointestinal (Abdomen): Inspection/Auscultation: abdomen normal to inspection and normal bowel sounds; abdomen not distended Musculoskeletal: no acute arthritis involving any of the joint Neurologic: normal touch/pain/proprioception and moves all extremities; no focal motor deficits Psychiatric: A+Ox3, euthymic affect Lymphatic: no cervical or axillary lymphadenopathy Results & Data Results & Data Vital Signs (Past 12 Hours) Vital Signs Temp Pulse Resp BP Pulse Ox Pulse Ox O2 Del Method 07/22/24 11:58 67 134/72 07/22/24 11:42 36.7 C 35 L 18 93 Room Air 07/22/24 09:56 Room Air 07/22/24 08:39 36.7 C 77 19 138/68 95 Room Air 07/22/24 08:00 95 07/22/24 07:39 36.7 C 32 L 18 92 Room Air 07/22/24 04:13 36.6 C 45 L 14 147/65 H 93 Room Air O2 Del Method 07/22/24 11:58 07/22/24 11:42 07/22/24 09:56 07/22/24 08:39 07/22/24 08:00 Room Air 07/22/24 07:39 07/22/24 04:13 Laboratory Results Short CBC 07/22/24 Range/Units 07:05 WBC 7.91 (4.8-10.8) K/ul Hgb 13.9 L (14.0-18.0) g/dl Hct 41.8 L (42.0-52.0) % Plt Count 238 (130-400) K/uL BMP 07/22/24 07:05 Sodium 140 Potassium 3.7 Chloride 99 Carbon Dioxide 32 BUN 25 H Creatinine 0.91 Glucose 130 H Calcium 8.8 Liver Function 07/22/24 Range/Units 07:05 Total Bilirubin 0.5 (0.2-1.0) mg/dl Direct Bilirubin 0.2 (0-0.2) mg/dl AST 20 (13-39) U/L ALT 15 (7-52) U/L Alkaline Phosphatase 44 (34-104) U/L Albumin 3.5 (3.4-5.0) gm/dl Medications Administered Current Inpatient Medications Acetaminophen (Acetaminophen 325 Mg Tab) 650 mg PO Q4H PRN PRN Reason: Pain or Fever Stop: 08/19/24 23:24 Allopurinol (Allopurinol 300 Mg Tab) 300 mg PO QAM CHET Stop: 08/20/24 08:59 Last Admin: 07/22/24 08:42 Dose: 300 mg Aspirin (Aspirin 81 Mg Ectab) 81 mg PO DAILY CHET Stop: 08/20/24 08:59 Last Admin: 07/22/24 08:43 Dose: 81 mg Dextrose (Dextrose 50% 50 Ml Syringe) 25 - 50 ml IV UD PRN; Protocol PRN Reason: Hypoglycemia Protocol Stop: 08/19/24 23:24 Doxycycline Hyclate (Doxycycline Hyclate 100 Mg Cap) 100 mg PO BID CHET Stop: 07/26/24 08:59 Last Admin: 07/22/24 08:42 Dose: 100 mg Enoxaparin Sodium (Enoxaparin Inj 40 Mg/0.4 Ml Syr) 40 mg SQ QAM CHET Stop: 08/20/24 08:59 Last Admin: 07/22/24 09:25 Dose: Not Given Finasteride (Finasteride 5 Mg Tab) 5 mg PO HS CHET Stop: 08/20/24 20:59 Last Admin: 07/21/24 20:09 Dose: 5 mg Glucagon (Glucagon For Inj 1 Mg Vial) 1 mg SQ UD PRN; Protocol PRN Reason: Hypoglycemia Protocol Stop: 08/19/24 23:24 Glucose (Glucose 40% Gel 15 Gm Tube) 15 - 30 gm PO UD PRN; Protocol PRN Reason: Hypoglycemia Protocol Stop: 08/19/24 23:24 Glucose (Glucose 10 Tab/Tube) 4 - 8 tab PO UD PRN; Protocol PRN Reason: Hypoglycemia Protocol Stop: 08/19/24 23:24 Remdesivir 100 mg/ Sodium (Chloride) 250 mls @ 250 mls/hr IV Q24H CHET Stop: 07/22/24 22:59 Last Infusion: 07/21/24 22:13 Dose: Infused Dexamethasone 6 mg/ Syringe 1.5 mls @ 1 mls/min IV DAILY CHET Stop: 08/20/24 08:59 Last Admin: 07/22/24 09:25 Dose: 1 mls/min Promethazine HCl (Phenergan) 6.25 mg in 50.25 mls @ 201 mls/hr IV Q6H PRN PRN Reason: Nausea And Vomiting Stop: 08/19/24 22:00 Insulin Aspart (Insulin Aspart Per Unit Charge) 0 units SC ACHS [facility] Stop: 08/19/24 23:24 Last Admin: 07/22/24 12:28 Dose: 2 units Insulin Glargine (Lantus Per Unit Charge) 5 units SQ BID CHET Stop: 08/19/24 21:59 Last Admin: 07/22/24 08:53 Dose: 5 units Lisinopril (Lisinopril 40 Mg Tab) 40 mg PO QAM [facility] Stop: 08/20/24 08:59 Last Admin: 07/22/24 08:42 Dose: 40 mg Metoprolol Succinate (Metoprolol Succ 25mg Ext Rel Tab) 25 mg PO DAILY [facility] Stop: 08/20/24 08:59 Last Admin: 07/22/24 08:43 Dose: 25 mg Miscellaneous (Carbohydrates For Hypoglycemia ) 15 - 30 gm PO UD PRN PRN Reason: Hypoglycemia Protocol Stop: 08/19/24 23:24 Nitroglycerin (Nitroglycerin Sl 0.4 Mg/Tab Tab) 0.4 mg SL Q5M PRN PRN Reason: Chest Pain Stop: 08/19/24 23:24 Oxycodone HCl (Oxycodone Hcl Ir 5 Mg Tab (Immediate Release)) 5 mg PO Q4H PRN PRN Reason: Pain Stop: 08/03/24 22:00 Pantoprazole Sodium (Pantoprazole 40 Mg Tab) 40 mg PO QAM [facility] Stop: 08/20/24 15:14 Last Admin: 07/22/24 08:42 Dose: 40 mg Simvastatin (Simvastatin 20 Mg Tab) 20 mg PO HS CHET Stop: 08/20/24 20:59 Last Admin: 07/21/24 20:09 Dose: 20 mg Tamsulosin HCl (Tamsulosin Hcl 0.4 Mg Cap) 0.8 mg PO QAM [facility] Stop: 08/20/24 08:59 Last Admin: 07/22/24 08:42 Dose: 0.8 mg
[2024-07-22 14:36] VITALS: PULSE 51
--- NOTE | 2024-07-22 17:31 | Discharge Summary ---
Date of Service July 22, 2024 Admission HPI Per Admitting Provider History obtained from patient, family, and records. Medical history significant for hypertension, hyperlipidemia, PVCs, TALI on CPAP, DM2 on oral medications, gout, urolithiasis, morbid obesity. Few days history of cough symptoms later productive of junky yellow sputum associated with generalized bodyaches and congestion and sore throat. Denies chest pain. Denies fluid retention. Sick contact over the weekend at the [facility]. Patient also saw [facility] 3 days ago for bradycardic episode in the setting of PVCs. Specialist recommended changing patient atenolol to metoprolol. Patient consulted local urgent care center and [facility]. Noted to have O2 sats dropping below 90 with ambulation. Patient directed to ER for evaluation. O2 sats 80s upon arrival at the ER. Patient received Decadron, Lasix, and neb treatment at the ER. 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 Principal Diagnosis Mild CHF secondary to Diastolic Dysfunction,Covid 19 virus infection,Acute Bronchitis Discharge Exam Lying in bed without any acute distress Constitutional well developed, well nourished and + obese; not ill appearing ENMT external ear and nose normal, oropharynx normal Neck trachea midline, no thyromegaly Respiratory normal respiratory effort; no respiratory distress Auscultation: lungs clear to auscultation bilaterally Cardiovascular Rate/Rhythm: regular rate and regular rhythm; not tachycardic Heart Sounds: normal S1 and normal S2; no murmur Extremities: no edema Gastrointestinal (Abdomen) Inspection/Auscultation: abdomen normal to inspection and normal bowel sounds; abdomen not distended Neurologic normal touch/pain/proprioception and moves all extremities; no focal motor deficits Psychiatric A+Ox3, euthymic affect Lymphatic no cervical or axillary lymphadenopathy Discharge Data Allergies Allergy/AdvReac Type Severity Reaction Status Date / Time phenylbutazone Allergy Intermediate Fever Verified 07/20/24 22:17 amlodipine AdvReac Mild Gastrointestinal Verified 07/20/24 22:18 Upset Consultations 07/20/24 20:39 ED Decision to Admit Stat 07/20/24 23:25 Consult Cardiology Routine Hospital Course (1) Acute hypoxemic respiratory failure: COVID-19 pneumonia likely with superimposed bacterial infection Mild CHF, likely acute HFpEF Hypoxia: likely 2/2 COVID 19 infection. No mention of respiratory distress in a dmitting exam. VBG nl at presentation. 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 COVID-19 virus positive, BNP elevated at 389, CXR with mild congestion, VBG fairly WNL. Echo with EF of 50 to 55%, grade 1 diastolic dysfunction. No regional wall motion abnormalities. Left atrium mildly dilated. Patient started on dexamethasone, doxycycline, Lovenox subcu, remdesivir. Continue. Wean down oxygen as tolerated, incentive spirometer. Continue to provide supportive care, enhanced precautions. S/p 1 dose of lasix at presentation, Cardiology consult, await recommendation. Strict I/Os, daily weights, CHF education Likely Pioglitazone needs to be dc'd at discharge due to s/e of fluid retention/HF, will get A1c in AM to assess DM status. Clinically much better today and denies any significant symptoms Hemoglobin A1c 6.8 and will advised to discontinue Pioglitazone to decrease fluid retention Appreciate cardiology input and recommendation Has had more than 3 L of negative balance and denies any symptoms with ambulation and remains saturated on room air Will be discharged home on doxycycline and dexamethasone to finish the course Advised to follow COVID precaution for the next 8 days Other chronic medical conditions: Continue with/resume home meds as when able. hypertension and troponin, elevated secondary to illness hyperlipidemia, on statin Rx PVCs, patient recently started [facility] on Lopressor in place of home atenolol TALI on CPAP DM2 on oral medications, well-controlled as of recent hemoglobin A1c of 6.05 April 2024 morbid obesity DVT prophylaxis per Lovenox subcu Full code Patient Ms. Albertina Adhikari, contact number# [phone]. Pt's was given phone call, updated, answered all her questions. Text document was generated using [employer] voice recognition software. It may contain grammatical or spelling errors. Kindly contact undersigned for clarification of any documentation item in question. Total Time Total Time Spent Total Time Spent (In Minutes): 35 Minutes Discharge Plan Discharge Items Patient Disposition: Home - Self-Care Reason For Visit: RESP FAILURE, CHF, COVID Discharge Diagnosis: Mild CHF secondary to Diastolic Dysfunction,Covid 19 virus infection,Acute Bronchitis Condition on Discharge: Good Activity: Resume your previous activity Non-emergency contact: Primary Care Provider Call non-emergency contact if: you have any medication questions and your s ymptoms worsen Follow-up/Referrals: Guru Cox MD [Primary Care Provider] - 07/27/24 3:00 pm Diet: Carb Consistent or DM2 and Heart Healthy Addtl Attending Provider Instructions: Please take precautions to avoid falls Please finish the course of medicine Take precautions for COVID infection for the next 8 days as advised You are advised to discontinue pioglitazone as it can cause fluid retention Pending Studies at Discharge: No Stand-Alone Forms: My [facility] [employer] Smoking Cessation Medications and DC Order Prescriptions: New doxycycline hyclate 100 mg Capsule 100 mg PO BID Qty: 5 0RF dexamethasone 6 mg tablet 6 mg PO DAILY Qty: 7 0RF Continued simvastatin 20 mg tablet 20 mg PO HS cholecalciferol (vitamin D3) [Vitamin D3] 25 mcg (1,000 unit) Capsule 1,000 unit PO DAILY metoprolol succinate 25 mg tablet extended release 24 hr 25 mg PO DAILY Rx Instructions: 07/20/24 THIS MED NOT STARTED YET. hydrochlorothiazide 50 mg Tablet 50 mg PO QAM aspirin 81 mg Tablet,Delayed Release (Dr/Ec) 81 mg PO DAILY tamsulosin 0.4 mg Capsule 0.8 mg PO QAM Rx Instructions: TAKE TWO CAPSULES EVERY AM metformin 1,000 mg Tablet 1,000 mg PO AMHS allopurinol 300 mg Tablet 300 mg PO QAM lisinopril 40 mg Tablet 40 mg PO QAM finasteride 5 mg Tablet 5 mg PO HS Rx Instructions: PT TAKES THIS MED IN THE AM. glipizide 5 mg Tablet 5 mg PO BID Rx Instructions: TAKE THIS MED 30 MINUTES BEFORE MORNING AND EVENING MEALS. omega 4-ygo-oee-fish oil [Fish Oil] 1,000 mg (120 mg-180 mg) Capsule 1 cap PO BID Discontinued pioglitazone 30 mg Tablet 30 mg PO QAM Discharge Orders: Discharge Order (Routine); Ordered 07/22/24 Ordered By: Aries Mcdermott/Other Patient Handouts: High Blood Sugar (Hyperglycemia), Hypoglycemia (Low Blood Sugar), Managing Type 2 Diabetes, How to Check Your Blood Sugar Admission Data Admit Date/Time: 07/20/24 21:25 Attending Provider: Aries Connelly Admit Provider: Yon Fleming Primary Care Provider: Guru Cox Other Providers: Yon Fleming; Erica Gallo; Cliff Hester; Dano Barker; Gerardo Pascual; Ayad Edwards; Guru Guerrero; Delmis Bernal; Berna Prince; Coco Urban; Erica Almodovar; Jules Yip; Vasile Vasquez; Lakeisha Durant; Miroslava Bradshaw; Marcela Santos; Livier Mallory; Luis Julien; Anette Rehman; Chel Vasquez; Jonathan Monteiro Other Interventions: Discharge Summary Assessment (RN) Last Done: 07/22/24 13:59
== END 2024-07-22 15:29 | disposition home or self-care (01) | DRG 177 ==
LOC: ED 18:23 → SUATTDRO 21:25 → 2S 21:25
DX: J20.9 Acute bronchitis, unspecified; Z99.89 Dependence on other enabling machines and devices; Z68.38 Body mass index [BMI] 38.0-38.9, adult; Z79.84 Long term (current) use of oral hypoglycemic drugs; U07.1 COVID-19; Z79.82 Long term (current) use of aspirin; G47.33 Obstructive sleep apnea (adult) (pediatric); E11.9 Type 2 diabetes mellitus without complications; J12.82 Pneumonia due to coronavirus disease 2019; I11.0 Hypertensive heart disease with heart failure; M10.9 Gout, unspecified; Z79.899 Other long term (current) drug therapy; I50.31 Acute diastolic (congestive) heart failure; I49.3 Ventricular premature depolarization; E66.01 Morbid (severe) obesity due to excess calories; J96.01 Acute respiratory failure with hypoxia; Z88.8 Allergy status to other drugs, medicaments and biological substances; E78.5 Hyperlipidemia, unspecified